=== PATIENT | male | born 1930 | race Caucasian/White ===

== ENCOUNTER 2016-08-21 03:50 | Emergency (ER) | payer MEDICARE, BC ==
[~2016-08-21] VITALS: Ht 172.7 cm; Wt 70.7 kg
[~2016-08-21 03:50] MED LIST: ASPI325T PO; CIPR500T4 PO; OMEP20CA5 PO; PLAV75TA PO; PROBCAP4 PO; TAMS0.4C67 PO
[2016-08-21 04:01] VITALS: BP 137/85; PULSE 72; RESP 16; TEMP 97.8; O2SAT 99
[2016-08-21 04:30] VITALS: O2SAT 99
[2016-08-21] MEDS ORDERED: SODIUM CHLORIDE 0.9% FLUSH 5 ML FLUSH IVF PRN (04:30)
--- NOTE | 2016-08-21 04:30 | PD ---
HPI Chief Complaint: elevated blood pressure Time Seen by Provider: 04:18 Travel History International Travel<30 days: No Contact w/Intl Traveler<30days: No Traveled to known affect area: No History of Present Illness HPI 86-year-old male presents to the emergency department for complaint of feeling stressed not able to sleep and elevated blood pressure. Patient states that he started a new medication dose for the first time tonight. Patient is on Exelon for memory disturbance and was taking a low-dose patch subsequently was increased to 2 low-dose patches and then was to start a new stronger strength of the patch tonight. Patient reports after placing the patch or transdermal absorption started noticing that he was agitated felt like he couldn't relax and felt like his head was under pressure. Patient checked his blood pressure and it was elevated. Patient continued to feel poorly and noted associated nausea so decided to come to the emergency room for evaluation. No sudden onset thunderclap or worst ever headache no visual disturbance no double vision no loss of vision no facial weakness no trouble with his speech no neck pain no chest pain no palpitations no shortness of breath nausea without vomiting no referred neck jaw back shoulder arm or abdominal pain no weakness on one side of the body or the other side of the body and no ataxia of gait. Due to persistent symptoms patient decided after 3 hours to come to the emergency room for evaluation. Patient now reports that he is started to fill somewhat more calm. Patient has extensive past medical history that includes CAD with previous angioplasty dyslipidemia CVA CAD Meyers's esophagitis GERD hypertension and BPH previous appendectomy cholecystectomy coronary stent and dementia. [facility] Past Medical History Narrative Medical CAD angioplasty dyslipidemia CVA DEMENTIA CAD Meyers's esophagitis GERD hypertension BPH appendectomy cholecystectomy coronary stent no tobacco use nursing notes. Hx Anticoagulant Therapy: Yes Arthritis: Yes Blood Disorders: No Depression: Yes Heart Rhythm Problems: Yes Cancer: Yes (SKIN) Cardiac Catheterization: Yes Cardiovascular Problems: Yes ( ) High Cholesterol: Yes Chemotherapy: No Chest Pain: Yes (angio plasty 05-19-07.) Congestive Heart Failure: No Cerebrovascular Accident: Yes (25 years ago) Coronary Artery Disease: Yes Diminished Hearing: Yes (bilat hearing aids, pt does not have them in) Endocrine: No Gastrointestinal Disorders: Yes (MEYERS'S EOSPHAGUS) GERD: Yes Genitourinary: Yes (URINARY INCONTINENCE) Headaches: No Hypertension: Yes Immune Disorder: No Musculoskeletal: No Neurologic: No Psychiatric: No Reproductive: Yes (ENLARGED PROSTATE) Respiratory: No Migraines: No Myocardial Infarction: No Seizures: No Past Surgical History Abdominal Surgery: Yes AICD: No Appendectomy: No Arteriovenous Shunt: No Cardiac Surgery: No Cholecystectomy: Yes (2004) Coronary Stent: Yes Ear Surgery: No Endocrine Surgery: No Eye Surgery: No Genitourinary Surgery: No Gynecologic Surgery: No Insulin Pump: No Joint Replacement: No Neurologic Surgery: No Oral Surgery: No Pacemaker: No Thoracic Surgery: No Social History Alcohol Use: No Tobacco Use: No Substance Use: No Allergies-Medications (Allergen,Severity, Reaction): Coded Allergies: Prednisone (Unverified Allergy, Severe, RASH/HIVES, 03/20/16) Reported Meds & Prescriptions Reported Meds & Active Scripts Active Reported Flomax (Tamsulosin HCl) 0.4 Mg Cap 0.4 Mg PO HS Probiotic (Lactobacillus Acidophilus) 1 Cap Cap 1 Cap PO DAILY Omeprazole 20 Mg Tab 20 Mg PO DAILY Plavix (Clopidogrel Bisulfate) 75 Mg Tab 75 Mg PO DAILY Narrative Medication exelon 9.5 Review of Systems Except as stated in HPI: all other systems reviewed are Neg General / Constitutional: No: Fever, Chills Eyes: No: Diploplia, Blurred Vision HENT: Positive: Headaches, No: Vertigo, Lightheadedness Cardiovascular: No: Chest Pain or Discomfort Respiratory: No: Cough, Shortness of Breath Gastrointestinal: Positive: Nausea, No: Vomiting, Diarrhea, Abdominal Pain Genitourinary: No: Decreased Urinary Output Musculoskeletal: No: Myalgias, Arthralgias Skin: No Rash Neurologic: No: Weakness, Dizziness, Syncope, Focal Abnormalities, Coordination Problem Psychiatric: Positive: Anxiety Endocrine: No: Heat Intolerance Hematologic/Lymphatic: No: Easy Bruising Physical Exam Narrative GENERAL: Well-developed well-nourished male in no acute distress no respiratory distress SKIN: Warm and dry. HEAD: Atraumatic. Normocephalic. EYES: Pupils equal and round. No scleral icterus. No injection or drainage. ENT: No nasal bleeding or discharge. Mucous membranes pink and moist. NECK: Trachea midline. No JVD. CARDIOVASCULAR: Regular rate and rhythm. RESPIRATORY: No accessory muscle use. Clear to auscultation. Breath sounds equal bilaterally. GASTROINTESTINAL: Abdomen soft, non-tender, nondistended. Hepatic and splenic margins not palpable. MUSCULOSKELETAL: Extremities without clubbing, cyanosis, or edema. No obvious deformities. NEUROLOGICAL: Awake and alert. No obvious cranial nerve deficits. Motor grossly within normal limits. Five out of 5 muscle strength in the arms and legs. Normal speech. PSYCHIATRIC: Appropriate mood and affect; insight and judgment normal. Data Data Last Documented VS Vital Signs Date Time Temp Pulse Resp B/P Pulse Ox O2 Delivery O2 Flow Rate FiO2 08/21/16 04:53 64 18 149/73 100 Room Air 08/21/16 04:01 97.8 Orders Electrocardiogram (08/21/16 04:18) Basic Metabolic Panel (Bmp) (08/21/16 04:18) Complete Blood Count With Diff (08/21/16 04:18) Magnesium (Mg) (08/21/16 04:18) Troponin I (08/21/16 04:18) Ecg Monitoring (08/21/16 04:18) Iv Access Insert/Monitor (08/21/16 04:18) Oximetry (08/21/16 04:18) Sodium Chloride 0.9% Flush (Ns Flush) (08/21/16 04:30) Labs Laboratory Tests Test 08/21/16 04:30 White Blood Count 6.3 TH/MM3 Red Blood Count 4.49 MIL/MM3 Hemoglobin 14.4 GM/DL Hematocrit 41.7 % Mean Corpuscular Volume 92.8 FL Mean Corpuscular Hemoglobin 31.9 PG Mean Corpuscular Hemoglobin 34.4 % Concent Red Cell Distribution Width 12.7 % Platelet Count 154 TH/MM3 Mean Platelet Volume 8.5 FL Neutrophils (%) (Auto) 76.4 % Lymphocytes (%) (Auto) 13.1 % Monocytes (%) (Auto) 7.9 % Eosinophils (%) (Auto) 2.0 % Basophils (%) (Auto) 0.6 % Neutrophils # (Auto) 4.9 TH/MM3 Lymphocytes # (Auto) 0.8 TH/MM3 Monocytes # (Auto) 0.5 TH/MM3 Eosinophils # (Auto) 0.1 TH/MM3 Basophils # (Auto) 0.0 TH/MM3 CBC Comment DIFF FINAL Differential Comment Sodium Level 137 MEQ/L Potassium Level 3.8 MEQ/L Chloride Level 103 MEQ/L Carbon Dioxide Level 24.9 MEQ/L Anion Gap 9 MEQ/L Blood Urea Nitrogen 19 MG/DL Creatinine 0.85 MG/DL Estimat Glomerular Filtration 86 ML/MIN Rate Random Glucose 96 MG/DL Calcium Level 8.6 MG/DL Magnesium Level 2.1 MG/DL Troponin I LESS THAN 0.02 NG/ML MDM Medical Decision Making Medical Screen Exam Complete: Yes Emergency Medical Condition: Yes Medical Record Reviewed: Yes Interpretation(s) EKG: Normal sinus rhythm rate [address] elevation or injury pattern change noted rare PVC CBC & BMP Diagram 08/21/16 04:30 Vital Signs Date Time Temp Pulse Resp B/P Pulse Ox O2 Delivery O2 Flow Rate FiO2 08/21/16 04:53 64 18 149/73 100 Room Air 08/21/16 04:30 99 Room Air 08/21/16 04:20 18 99 Room Air 08/21/16 04:01 97.8 72 16 137/85 99 Differential Diagnosis Hypertension, agitation, adverse medication reaction, atypical chest pain, ACS, CVA Narrative Course Patient with new strength of Exelon patch with onset of agitation and inability to sleep and hypertension shortly after administering the increased dose of medication. Symptoms suspicious for adverse medication reaction. Patient resting quietly and comfortably blood pressure improved waiting on lab results Patient informed EKG reveals no acute abnormality and lab values in normal range ; patient reports he feels much more relaxed and extensive discussion regarding possible sensitivity versus adverse reaction to new strength of medication of his Exelon patch patient will need to contact prescribing physician regarding the dosage eating of the medication and patient provided description of Exelon 4.6 mg/24 transdermal patch which she had been on as recently as Monday evening. Diagnosis Primary Impression: Adverse drug reaction Qualified Code: T88.7XXA - Adverse drug reaction, initial encounter Referrals: Primary Care Physician 1 day Patient Instructions: General Instructions Additional Instructions: Follow-up with prescribing physician office on Monday Return to the emergency department for any concerns or change in condition May return to previous dose of Exelon until opportunity to follow-up with managing physician by phone or office visit Increase fluid hydration Take acetaminophen/Tylenol as needed for fever 100.4F or greater or for minor discomfort Med/Other Pt SpecificInfo: Prescription(s) given Scripts Rivastigmine Patch (Exelon Patch)4.6 mg/24 hr Patch1 Patch T-DERMAL DAILY #2 PATCH Ref 0 Prov:Bernadine Osorio MD 08/21/16 Bernadine Osorio MD Aug 21, 2016 04:30
[2016-08-21 04:45] LABS: AUTOMATED NEUTROPHIL # 4.9 TH/MM3 (1.8-7.7); BASOPHIL % 0.6 % (0.0-2.0); EOSINOPHIL # 0.1 TH/MM3 (0-0.4); HEMATOCRIT 41.7 % (39.0-51.0); HEMO FLAGS DIFF FINAL; LYMPH % 13.1 % (9.0-44.0); LYMPHOCYTE # 0.8 TH/MM3 (1.0-4.8); MEAN CELL VOLUME 92.8 FL (80.0-100.0); MEAN CORPUSCULAR HEMOGLOBIN 31.9 PG (27.0-34.0); MEAN CORPUSCULAR HGB CONC 34.4 % (32.0-36.0); MONO % 7.9 % (0.0-8.0); NEUT % 76.4 % (16.0-70.0); PLATELET COUNT 154 TH/MM3 (150-450); RED BLOOD COUNT 4.49 MIL/MM3 (4.50-5.90); RED CELL DISTRIBUTION WIDTH 12.7 % (11.6-17.2); WHITE BLOOD COUNT 6.3 TH/MM3 (4.0-11.0)
[2016-08-21 04:50] LABS: CHLORIDE 103 MEQ/L (98-107); POTASSIUM 3.8 MEQ/L (3.5-5.1); SODIUM (NA) 137 MEQ/L (136-145)
[2016-08-21] MEDS ORDERED: PLAV75TA29 PO (04:52)
[2016-08-21] MEDS ORDERED: OMEP20TA PO (04:52)
[2016-08-21 04:53] VITALS: BP 149/73; PULSE 64; RESP 18; O2SAT 100
[2016-08-21 04:53] LABS: ANION GAP 9 MEQ/L (5-15); BICARBONATE 24.9 MEQ/L (21.0-32.0); BLOOD UREA NITROGEN 19 MG/DL (7-18); MAGNESIUM 2.1 MG/DL (1.5-2.5)
[2016-08-21] MEDS ORDERED: LACTCAP8 PO (04:53)
[2016-08-21] MEDS ORDERED: TAMS5CAP PO (04:53)
[2016-08-21 04:56] LABS: GLOMERULAR FILTRATION RATE 86 ML/MIN (>89)
[2016-08-21] MEDS ORDERED: RIVA4.6T T-DERMAL (05:25)
--- NOTE | 2016-08-21 13:27 | EKG ---
Date Performed: 08/21/2016 Time Performed: 04:29:50 PTAGE: 86 years EKG: Sinus arrhythmia with PVC(s) Borderline ECG PREVIOUS TRACING : 03/20/2016 20.45 No significant change from previous tracing noted. DOCTOR: Mark Barrientos Interpretating Date/Time 08/21/2016 13:26:14
== END 2016-08-21 05:50 | disposition home or self-care (01) ==
LOC: PHED 03:50
DX: I15.8 Other secondary hypertension (principal); I49.3 Ventricular premature depolarization; T44.1X5A Adverse effect of other parasympathomimetics [cholinergics], initial encounter
CPT/HCPCS: 80048; 83735; 84484; 85025; 93005

== ENCOUNTER 2016-09-11 16:01 | Emergency (ER) | payer MEDICARE, BC ==
[~2016-09-11] VITALS: Ht 172.7 cm; Wt 69.2 kg
[~2016-09-11 16:01] MED LIST changes: -ASPI325T PO; -CIPR500T4 PO; +LACTCAP8 PO; -OMEP20CA5 PO; +OMEP20TA PO; -PLAV75TA PO; +PLAV75TA29 PO; -PROBCAP4 PO; +RIVA4.6T T-DERMAL; -TAMS0.4C67 PO; +TAMS5CAP PO
[2016-09-11 16:27] VITALS: BP 139/80; PULSE 68; RESP 16; TEMP 98.4; O2SAT 100
--- NOTE | 2016-09-11 17:21 | PD ---
HPI Chief Complaint: Injury Time Seen by Provider: 17:18 Travel History International Travel<30 days: No Contact w/Intl Traveler<30days: No Traveled to known affect area: No History of Present Illness HPI 86-year-old male that presents to the ED for evaluation of fall. Per patient had trip and fall at the airport today while watching some parachuting. Per patient he tripped over the concrete and try to stop his fall with his right arm and he was successful as he did not hit his head or lose consciousness. Per patient he didn't think much of it but as the day has progressed she's been having some discomfort on the lateral aspect of the proximal palm as well as on the volar aspect of the wrist. Per patient he denies any injuries to this area. Per patient the pain is 7 out of 10. Gets worse with touch as well as with movement. Able to move all fingers. Denies any numbness, tilling, weakness. Does not take any blood thinners. Denies any other injury. Allergies to cortisone and prednisone. Pain does not radiate. Denies any shoulder or neck pain. No knee pain. PFSH Past Medical History Hx Anticoagulant Therapy: Yes (plavix) Arthritis: Yes Blood Disorders: No Depression: Yes Heart Rhythm Problems: Yes Cancer: Yes (SKIN) Cardiac Catheterization: Yes Cardiovascular Problems: Yes (stents x 2, ) High Cholesterol: Yes Chemotherapy: No Chest Pain: Yes (angio plasty 05-19-07.) Congestive Heart Failure: No Cerebrovascular Accident: Yes (tia's) Coronary Artery Disease: Yes Dementia: Yes Diminished Hearing: Yes (AGUA CALIENTE ) Endocrine: No Gastrointestinal Disorders: Yes (MEYERS'S EOSPHAGUS) GERD: Yes Genitourinary: Yes (URINARY INCONTINENCE) Headaches: No Hypertension: Yes Immune Disorder: No Musculoskeletal: No Neurologic: No Psychiatric: No Reproductive: Yes (ENLARGED PROSTATE) Respiratory: No Migraines: No Myocardial Infarction: No Seizures: No Past Surgical History Abdominal Surgery: Yes AICD: No Appendectomy: No Arteriovenous Shunt: No Cardiac Surgery: No Cholecystectomy: Yes (2004) Coronary Stent: Yes Ear Surgery: No Endocrine Surgery: No Eye Surgery: No Genitourinary Surgery: No Gynecologic Surgery: No Insulin Pump: No Joint Replacement: No Neurologic Surgery: No Oral Surgery: No Pacemaker: No Thoracic Surgery: No Social History Alcohol Use: Yes (Occasionally ) Tobacco Use: No Substance Use: No Allergies-Medications (Allergen,Severity, Reaction): Coded Allergies: Prednisone (Unverified Allergy, Severe, RASH/HIVES, 09/11/16) Cortisone (Verified Allergy, Intermediate, rash, 09/11/16) Reported Meds & Prescriptions Reported Meds & Active Scripts Active Exelon Patch (Rivastigmine) 4.6 mg/24 hr Patch 1 Patch T-DERMAL DAILY Reported Flomax (Tamsulosin HCl) 0.4 Mg Cap 0.4 Mg PO HS Probiotic (Lactobacillus Acidophilus) 1 Cap Cap 1 Cap PO DAILY Omeprazole 20 Mg Tab 20 Mg PO DAILY Plavix (Clopidogrel Bisulfate) 75 Mg Tab 75 Mg PO DAILY Review of Systems General / Constitutional: No: Fever, Chills, Weight Gain, Weight Loss, Other Eyes: No: Diploplia, Blurred Vision, Photophobia, Drainage, Redness, Foreign Body Sensation, Pain, Tearing, Blind Spots, Visual changes, Blindness, Other HENT: No: Headaches, Vertigo, Lightheadedness, Sore Throat, Rhinitis, Rhinorrhea, Congestion, Nosebleed, Neck Stiffness, Neck Pain, Masses, Gingival Bleeding, Dental Difficulties, Ear Discharge, Earache, Other Cardiovascular: No: Chest Pain or Discomfort, Palpitations, Irregular Rhythm, Tachycardia, Diaphoresis, Syncope, Dyspnea on exertion, Varicosities, Edema, Cyanosis, Varicosities, Phlebitis, Claudication, Other Respiratory: No: Cough, Shortness of Breath, Wheezing, Sneezing, Orthopnea, Hemoptysis, Stridor, Night Sweats, Pleuritic Pain, Other Gastrointestinal: No: Nausea, Vomiting, Diarrhea, Abdominal Pain, Hematemesis, Hematochezia, Constipation, Changes in Bowel Habits, Indigestion, Dysphagia, Loss of Appetite, Other Genitourinary: No: Urgency, Frequency, Dysuria, Nocturia, Hematuria, Decreased Urinary Output, Oliguria, Hesitancy, Dribbling, Incontinence, Pelvic Pain, Flank Pain, Dyspareunia, Discharge, Dysmenorrhea, Menorrhagia, Metorrhagia, Vaginal Bleeding, Other Musculoskeletal: Positive: Pain, No: Myalgias, Arthralgias, Limited ROM, Weakness, Cramping, Edema, Atrophy, Other Skin: No Rash, No Itching, No Dryness, No Lumps, No Hives, No Change in Pigmentation, No Change in nails, No Alopecia, No Lesions, No Breast Lumps, No Breast Tenderness, No Breast Swelling, No Other Neurologic: No: Weakness, Dizziness, Syncope, Focal Abnormalities, Coordination Problem, Tremor, Ataxia, Headache, Change in Mentation, Slurred Speech, Paresthesia, Incontinence, Seizures, Sensory Disturbance, Other Psychiatric: No: Anxiety, Depression, Suicidal Ideations, Disorder of Thought, Mood Disorder, Substance Abuse, Homicidal Ideation, Other Endocrine: No: Heat Intolerance, Cold Intolerance, Polyuria, Polydipsia, Other Hematologic/Lymphatic: No: Easy Bruising, Lymph Node Enlargement, Other Physical Exam Narrative GENERAL: SKIN: Warm and dry. HEAD: Atraumatic. Normocephalic. EYES: Pupils equal and round. No scleral icterus. No injection or drainage. ENT: No nasal bleeding or discharge. Mucous membranes pink and moist. Tongue is midline. No uvula deviation. NECK: Trachea midline. No JVD. CARDIOVASCULAR: Regular rate and rhythm. No murmurs, S3, S4. RESPIRATORY: No accessory muscle use. Clear to auscultation. Breath sounds equal bilaterally. GASTROINTESTINAL: Abdomen soft, non-tender, nondistended. Hepatic and splenic margins not palpable. MUSCULOSKELETAL: Extremities without clubbing, cyanosis, or edema. No obvious deformities. Full range of motion of the upper and lower extremities bilaterally. Patient does have reproducible pain on the ulnar palmar aspect of the right hand. Some bruising and swelling noted. No scapular tenderness to palpation. Able to move the fingers fully. Good capillary refill. 2+ pulses in the ulnar and radial arteries. NEUROLOGICAL: Awake and alert. No obvious cranial nerve deficits. Motor grossly within normal limits. Five out of 5 muscle strength in the arms and legs. Normal speech. PSYCHIATRIC: Appropriate mood and affect; insight and judgment normal. Data Data Last Documented VS Vital Signs Date Time Temp Pulse Resp B/P Pulse Ox O2 Delivery O2 Flow Rate FiO2 09/11/16 16:27 98.4 68 16 139/80 100 Orders Hand, Complete ([id number]) (09/11/16 ) Wrist, Complete ([id number]) (09/11/16 ) Splint Or Brace Apply/Monitor (09/11/16 19:12) MDM Medical Decision Making Medical Screen Exam Complete: Yes Emergency Medical Condition: Yes Medical Record Reviewed: Yes Interpretation(s) Last Impressions Wrist X-Ray 09/11/16 0000 Signed Impressions: Service Date/Time: Sunday, September 11, 2016 18:07 - CONCLUSION: 1. No acute fracture or malalignment. 2. Osteoarthritic changes. Ronnell Pelaez MD Hand X-Ray 09/11/16 0000 Signed Impressions: Service Date/Time: Sunday, September 11, 2016 18:02 - CONCLUSION: Negative trauma study with no acute fracture or malalignment. Ronnell Pelaez MD Differential Diagnosis Fracture versus sprain versus strain versus contusion Narrative Course 86-year-old male that presents to the ED for evaluation of right hand and wrist injury. Patient was properly examined and was found to have signs and symptoms concerning for bony injuries. X-rays were done. X-rays showed no sign of acute bony injury. Patient was reassured. Patient was given a brace. Prescription for the cough and exam to use for pain as needed. Follow with PCP. See ED if worsening symptoms. Diagnosis Primary Impression: Contusion of hand, right Patient Instructions: General Instructions Additional Instructions: Take medication as prescribed. Follow with PCP. See ED worsening symptoms. Ice or heat to the area as needed. Med/Other Pt SpecificInfo: Prescription(s) given Disposition: 01 DISCHARGE HOME Condition: Stable Alex Miller Sep 11, 2016 17:20
--- NOTE | 2016-09-11 18:41 | RADHPO ---
EXAM DATE/TIME: 09/11/2016 18:02 [facility] COMPARISON: No previous studies available for comparison. INDICATIONS : Right hand pain from fall MEDICAL HISTORY : None. SURGICAL HISTORY : None. ENCOUNTER: Initial ACUITY: 1 day PAIN SCORE: 5/10 LOCATION: Right hand FINDINGS: Three view examination of the right hand demonstrates no soft tissue swelling, dislocation, or fractu re. The carpal bones appear intact. Mild osteoarthritic changes are present sclerosis and mild join t space narrowing. The interphalangeal and metacarpophalangeal joints are intact. Bony mineralizatio n is normal. CONCLUSION: Negative trauma study with no acute fracture or malalignment. Ronnell Pelaez MD on September 11, 2016 at 18:37 Board Certified Radiologist. This report was verified electronically.
--- NOTE | 2016-09-11 18:44 | RADHPO ---
EXAM DATE/TIME: 09/11/2016 18:07 [facility] COMPARISON: No previous studies available for comparison. INDICATIONS : Right wrist pain from fall MEDICAL HISTORY : None. SURGICAL HISTORY : None. ENCOUNTER: Initial ACUITY: 1 day PAIN SCORE: 5/10 LOCATION: Right wrist FINDINGS: Three view examination of the right wrist demonstrates no soft tissue swelling, dislocation, or fract ure. The carpal bones are in normal alignment. Degenerative changes are noted in the carpus with sc lerosis and joint space narrowing. This is greatest in the trapezium scaphoid joint. The ulnar styloi d is intact. Bony mineralization is normal. CONCLUSION: 1. No acute fracture or malalignment. 2. Osteoarthritic changes. Ronnell Pelaez MD on September 11, 2016 at 18:42 Board Certified Radiologist. This report was verified electronically.
[2016-09-11] MEDS ORDERED: DICL75TA PO (19:17)
== END 2016-09-11 19:30 | disposition home or self-care (01) ==
LOC: PHED 16:01 → PHEFT 19:30
DX: S60.221A Contusion of right hand, initial encounter (principal); M25.531 Pain in right wrist; I10 Essential (primary) hypertension; F03.90 Unspecified dementia, unspecified severity, without behavioral disturbance, psychotic disturbance, mood disturbance, and anxiety; E78.00 Pure hypercholesterolemia, unspecified; H91.90 Unspecified hearing loss, unspecified ear; W01.0XXA Fall on same level from slipping, tripping and stumbling without subsequent striking against object, initial encounter; Y93.82 Activity, spectator at an event; Y92.520 Airport as the place of occurrence of the external cause; Z87.39 Personal history of other diseases of the musculoskeletal system and connective tissue; Z79.01 Long term (current) use of anticoagulants; Z86.79 Personal history of other diseases of the circulatory system; Z87.19 Personal history of other diseases of the digestive system; Z87.448 Personal history of other diseases of urinary system; Z87.438 Personal history of other diseases of male genital organs
CPT/HCPCS: 73110; 73130; 99284; L3908

== ENCOUNTER 2016-09-14 18:31 | Emergency (ER) | payer MEDICARE, BC ==
[2016-09-14] VITALS (8 sets, daily range): BP systolic 155–199; BP diastolic 83–103; PULSE 69–92; RESP 16–20; TEMP 98; O2SAT 96–99
[~2016-09-14] VITALS: Ht 172.7 cm; Wt 68.0 kg
[~2016-09-14 18:31] MED LIST changes: +DICL75TA PO
[2016-09-14] MEDS ORDERED: RIVA1.5C PO (18:48)
[2016-09-14] MEDS ORDERED: SODIUM CHLORIDE 0.9% FLUSH 10 ML FLUSH IVF PRN (19:45)
--- NOTE | 2016-09-14 20:17 | PD ---
HPI Chief Complaint: OD/ Ingestion Time Seen by Provider: 19:45 Travel History International Travel<30 days: No Contact w/Intl Traveler<30days: No Traveled to known affect area: No History of Present Illness HPI 86-year-old male presents to the emergency department by private transportation in the care of his daughter for accidental overdose of Exelon. Patient was recently changed from Exelon patches to Exelon tablets. Patient is prescribed Exelon 1.5 mg tablets to take twice daily. Patient has been on escalating scale of medications and was supposed to take Exelon 1.5 mg tablets two at one time this evening but instead took Exelon 4.5 mg tablets two at one time around 5:30 or 6 PM this evening. Patient states because he has had issues with previous Exelon transcutaneous patch overdose before became concerned and presents now for further evaluation. Patient states that he has the Exelon 4.5 mg tablets as anticipated dose that he is to increase to will be 6 mg twice daily. Patient denies headache, visual disturbance, nausea vomiting, diarrhea, muscle spasm, balance disturbance, near-syncope or syncope. Patient takes no other medications besides his Exelon. Patient states that previously with the external overdose he did have episode of hypertension and this evening became very concerned that as he had taken such an increased dose that his blood pressure may become dangerously elevated. Patient also denies any chest pain shortness of breath sweats referred neck jaw back shoulder arm pain. Patient presents with his family. PFSH Past Medical History Narrative Medical Patient is prescribed Plavix for TIAs, dementia, CAD with stent placement, dyslipidemia, hypertension, anxiety-depression, dementia, decreased hearing; cholecystectomy coronary stents; occasional alcohol use; nursing notes reviewed Hx Anticoagulant Therapy: Yes (plavix) Arthritis: Yes Blood Disorders: No Depression: Yes Heart Rhythm Problems: Yes Cancer: Yes (SKIN) Cardiac Catheterization: Yes Cardiovascular Problems: Yes (stents x 2, ) High Cholesterol: Yes Chemotherapy: No Chest Pain: Yes (angio plasty 05-19-07.) Congestive Heart Failure: No Cerebrovascular Accident: Yes (tia's) Coronary Artery Disease: Yes Dementia: Yes Diminished Hearing: Yes ([place] ) Endocrine: No Gastrointestinal Disorders: Yes (MEYERS'S EOSPHAGUS) GERD: Yes Genitourinary: Yes (URINARY INCONTINENCE) Headaches: No Hypertension: Yes Immune Disorder: No Musculoskeletal: No Neurologic: No Psychiatric: No Reproductive: Yes (ENLARGED PROSTATE) Respiratory: No Migraines: No Myocardial Infarction: No Seizures: No Past Surgical History Abdominal Surgery: Yes AICD: No Appendectomy: No Arteriovenous Shunt: No Cardiac Surgery: No Cholecystectomy: Yes (2004) Coronary Stent: Yes Ear Surgery: No Endocrine Surgery: No Eye Surgery: No Genitourinary Surgery: No Gynecologic Surgery: No Insulin Pump: No Joint Replacement: No Neurologic Surgery: No Oral Surgery: No Pacemaker: No Thoracic Surgery: No Social History Alcohol Use: Yes (Occasionally ) Tobacco Use: No Substance Use: No Allergies-Medications (Allergen,Severity, Reaction): Coded Allergies: Prednisone (Unverified Allergy, Severe, RASH/HIVES, 09/14/16) Cortisone (Verified Allergy, Intermediate, rash, 09/14/16) Reported Meds & Prescriptions Reported Meds & Active Scripts Active Reported Rivastigmine 1.5 Mg Cap 1.5 Mg PO BIDPC Flomax (Tamsulosin HCl) 0.4 Mg Cap 0.4 Mg PO HS Probiotic (Lactobacillus Acidophilus) 1 Cap Cap 1 Cap PO DAILY Omeprazole 20 Mg Tab 20 Mg PO DAILY Plavix (Clopidogrel Bisulfate) 75 Mg Tab 75 Mg PO DAILY Review of Systems Except as stated in HPI: all other systems reviewed are Neg General / Constitutional: No: Fever, Chills Eyes: No: Diploplia, Blurred Vision, Photophobia HENT: No: Headaches, Vertigo, Lightheadedness Cardiovascular: No: Chest Pain or Discomfort, Palpitations, Diaphoresis Respiratory: No: Shortness of Breath Gastrointestinal: No: Nausea, Vomiting, Diarrhea, Abdominal Pain Genitourinary: No: Decreased Urinary Output Musculoskeletal: No: Myalgias, Arthralgias, Cramping Skin: No Rash Neurologic: No: Weakness, Dizziness, Syncope, Focal Abnormalities, Coordination Problem, Ataxia, Headache, Change in Mentation, Slurred Speech, Paresthesia, Seizures Psychiatric: Positive: Anxiety Hematologic/Lymphatic: No: Lymph Node Enlargement Physical Exam Narrative GENERAL: Well-developed well-nourished male in no acute distress no respiratory distress SKIN: Warm and dry. HEAD: Atraumatic. Normocephalic. EYES: Pupils equal and round. No scleral icterus. No injection or drainage. ENT: No nasal bleeding or discharge. Mucous membranes pink and moist. NECK: Trachea midline. No JVD. CARDIOVASCULAR: Regular rate and rhythm. RESPIRATORY: No accessory muscle use. Clear to auscultation. Breath sounds equal bilaterally. GASTROINTESTINAL: Abdomen soft, non-tender, nondistended. Hepatic and splenic margins not palpable. MUSCULOSKELETAL: Extremities without clubbing, cyanosis, or edema. No obvious deformities. NEUROLOGICAL: Awake and alert. No obvious cranial nerve deficits. Motor grossly within normal limits. Five out of 5 muscle strength in the arms and legs. Normal speech. PSYCHIATRIC: Appropriate mood and affect; insight and judgment normal. Data Data Last Documented VS Vital Signs Date Time Temp Pulse Resp B/P Pulse Ox O2 Delivery O2 Flow Rate FiO2 09/14/16 21:52 74 20 158/98 96 09/14/16 18:34 98.0 Orders Complete Blood Count With Diff (09/14/16 19:45) Basic Metabolic Panel (Bmp) (09/14/16 19:45) Magnesium (Mg) (09/14/16 19:45) Electrocardiogram (09/14/16 ) Iv Access Insert/Monitor (09/14/16 19:45) Ecg Monitoring (09/14/16 19:45) Oximetry (09/14/16 19:45) Sodium Chloride 0.9% Flush (Ns Flush) (09/14/16 19:45) Call Poison Control (09/14/16 19:45) Labs Laboratory Tests Test 09/14/16 20:10 White Blood Count 6.6 TH/MM3 Red Blood Count 4.15 MIL/MM3 Hemoglobin 13.6 GM/DL Hematocrit 40.0 % Mean Corpuscular Volume 96.3 FL Mean Corpuscular Hemoglobin 32.8 PG Mean Corpuscular Hemoglobin 34.0 % Concent Red Cell Distribution Width 13.3 % Platelet Count 121 TH/MM3 Mean Platelet Volume 8.5 FL Neutrophils (%) (Auto) 81.5 % Lymphocytes (%) (Auto) 10.0 % Monocytes (%) (Auto) 7.1 % Eosinophils (%) (Auto) 1.2 % Basophils (%) (Auto) 0.2 % Neutrophils # (Auto) 5.2 TH/MM3 Lymphocytes # (Auto) 0.7 TH/MM3 Monocytes # (Auto) 0.5 TH/MM3 Eosinophils # (Auto) 0.1 TH/MM3 Basophils # (Auto) 0.0 TH/MM3 CBC Comment AUTO DIFF Differential Comment AUTO DIFF CONFIRMED Sodium Level 136 MEQ/L Potassium Level 3.8 MEQ/L Chloride Level 102 MEQ/L Carbon Dioxide Level 24.3 MEQ/L Anion Gap 10 MEQ/L Blood Urea Nitrogen 22 MG/DL Creatinine 0.69 MG/DL Estimat Glomerular Filtration 109 ML/MIN Rate Random Glucose 103 MG/DL Calcium Level 8.1 MG/DL Magnesium Level 2.1 MG/DL MDM Medical Decision Making Medical Screen Exam Complete: Yes Emergency Medical Condition: Yes Medical Record Reviewed: Yes Interpretation(s) EKG: Normal sinus rhythm rate [address] elevation or injury pattern change or ectopy noted Differential Diagnosis Accidental overdose-Exelon, adverse medication reaction, hypertension uncontrolled Narrative Course Call placed to poison control patient placed on radiation monitor IV access obtained EKG performed reveals no acute injury pattern change or ST elevation or ectopy CBC is automated differential 81% neutrophils and mild thrombocytopenia 121,000 platelets otherwise values grossly normal range; metabolic panel values in normal range except for mild hypocalcemia of 8.1; EKG is sinus rhythm without ectopy or acute injury pattern change Patient continues to be observed in the emergency department as recommended by poison control; doing well voicing no concerns or complaints Patient ambulatory several times to the bathroom without assistance and remaining asymptomatic @2200 p.m. poison control recontacted regarding patient's observation (4 hours in the ED without symptoms) discussed case with poison space control agent Popeye who also viewed case with initial poison space control agent Vicenta--patient is observation. Has been sufficient to patient being released home safely maximum 24-hour dose is recommended as 12 mg patient is under this dose and not considered to have received/ingested a toxic dose of Exelon. Patient's repeat blood pressure via manual BP 158/98. Patient doesn't recall the name of his as needed BP med he's had in the past. Critical Care Narrative Aggregate critical care time was 35 minutes. Time to perform other separately billable procedures was not included in the critical care time. My time did not include minutes spent treating any other patients simultaneously or on activities that did not directly contribute to the patient's treatment. The services I provided to this patient were to treat and/or prevent clinically significant deterioration that could result in: Seizure, hypertensive crisis, ICH, I provided critical care services requiring my management, as noted below: Chart data review, documentation time, medication orders and management, vital sign assessments/reviewing monitor data, ordering and reviewing lab tests, ordering and interpreting/reviewing x-rays and diagnostic studies, care of the patient and discussion of the patient with the admitting physicians. Diagnosis Primary Impression: Accidental medication overdose Qualified Code: T50.901A - Accidental medication overdose, initial encounter Additional Impression: History of hypertension Referrals: Primary Care Physician 1 day Patient Instructions: General Instructions Additional Instructions: Follow-up with primary care provider call office in a.m. to schedule follow-up appointment Avoid exposure to Exelon 4.5 mg tablets by placing them and a secure place away from daily medication use area until time to begin using this dosage of medication as prescribed by your providing physician Return to the emergency department for any concerns or change in condition Increase fluid hydration Med/Other Pt SpecificInfo: Prescription(s) given Scripts Clonidine 0.1 Mg Tab0.1 Mg PO Q12HR PRN (SBP>180, DBP>95) #3 TAB Ref 0 Prov:Bernadine Osorio MD 09/14/16 Disposition: 01 DISCHARGE HOME Condition: Stable Bernadine Osorio MD Sep 14, 2016 20:17
[2016-09-14 20:18] LABS: AUTOMATED NEUTROPHIL # 5.2 TH/MM3 (1.8-7.7); BASOPHIL % 0.2 % (0.0-2.0); EOSINOPHIL # 0.1 TH/MM3 (0-0.4); EOSINOPHIL % 1.2 % (0.0-4.0); LYMPHOCYTE # 0.7 TH/MM3 (1.0-4.8); MEAN CELL VOLUME 96.3 FL (80.0-100.0); MEAN CORPUSCULAR HEMOGLOBIN 32.8 PG (27.0-34.0); MONO % 7.1 % (0.0-8.0); NEUT % 81.5 % (16.0-70.0); PLATELET COUNT 121 TH/MM3 (150-450); RED BLOOD COUNT 4.15 MIL/MM3 (4.50-5.90); RED CELL DISTRIBUTION WIDTH 13.3 % (11.6-17.2); WHITE BLOOD COUNT 6.6 TH/MM3 (4.0-11.0)
[2016-09-14 20:23] LABS: POTASSIUM 3.8 MEQ/L (3.5-5.1)
[2016-09-14 20:26] LABS: BICARBONATE 24.3 MEQ/L (21.0-32.0); MAGNESIUM 2.1 MG/DL (1.5-2.5)
[2016-09-14 20:28] LABS: HEMO FLAGS AUTO DIFF
[2016-09-14 21:10] LABS: SCAN/DIFF AUTO DIFF CONFIRMED
[2016-09-14] MEDS ORDERED: CLON0.1T PO (22:39)
[2016-09-15] VITALS: BP 179/89; PULSE 82; RESP 20; O2SAT 97
[2016-09-15 00:50] VITALS: BP 170/70
--- NOTE | 2016-09-15 14:40 | EKG ---
Date Performed: 09/14/2016 Time Performed: 20:30:42 PTAGE: 86 years EKG: Sinus rhythm . Poor R wave progression - probable normal variant Borderline ECG Compared to prior tracing no signi ficant change PREVIOUS TRACING : 08/21/2016 04.29 DOCTOR: Mekhi Wagner Interpretating Date/Time 09/15/2016 14:38:08
== END 2016-09-14 23:08 | disposition home or self-care (01) ==
LOC: PHED 18:31
DX: T44.1X1A Poisoning by other parasympathomimetics [cholinergics], accidental (unintentional), initial encounter (principal); R94.31 Abnormal electrocardiogram [ECG] [EKG]; E78.00 Pure hypercholesterolemia, unspecified; I25.10 Atherosclerotic heart disease of native coronary artery without angina pectoris; F03.90 Unspecified dementia, unspecified severity, without behavioral disturbance, psychotic disturbance, mood disturbance, and anxiety; I10 Essential (primary) hypertension; K21.9 Gastro-esophageal reflux disease without esophagitis; Z86.73 Personal history of transient ischemic attack (TIA), and cerebral infarction without residual deficits; Z79.01 Long term (current) use of anticoagulants; Y92.009 Unspecified place in unspecified non-institutional (private) residence as the place of occurrence of the external cause; Y99.8 Other external cause status
CPT/HCPCS: 80048; 83735; 85025; 93005

== ENCOUNTER 2017-05-05 11:44 | Emergency (ER) | payer MEDICARE, BC ==
[~2017-05-05] VITALS: Ht 172.7 cm; Wt 67.0 kg
[~2017-05-05 11:44] MED LIST changes: +CLON0.1T PO; -DICL75TA PO; -OMEP20TA PO; +OMEP20TA93 PO; +RIVA1.5C PO; -RIVA4.6T T-DERMAL
[2017-05-05 11:50] VITALS: BP 137/67; PULSE 65; RESP 18; TEMP 97.2; O2SAT 97
--- NOTE | 2017-05-05 12:04 | PD ---
HPI Chief Complaint: GI Complaint Time Seen by Provider: 12:02 Travel History International Travel<30 days: No Contact w/Intl Traveler<30days: No Traveled to known affect area: No History of Present Illness HPI This patient complains of generalized weakness and diarrhea. Duration 3 days. Severity is moderate. He has minor nausea without vomiting or fever or abdominal pain. He's had one episode of diarrhea in each of the last 3 days. No bleeding. Symptoms have no alleviating factors. No exacerbating factors. No recent travel PFSH Past Medical History Hx Anticoagulant Therapy: Yes (plavix) Arthritis: Yes Blood Disorders: No Depression: Yes Heart Rhythm Problems: Yes Cancer: Yes (SKIN) Cardiac Catheterization: Yes Cardiovascular Problems: Yes (stents x 2, ) High Cholesterol: Yes Chemotherapy: No Chest Pain: Yes (angio plasty 05-19-07.) Congestive Heart Failure: No Cerebrovascular Accident: Yes (tia's) Coronary Artery Disease: Yes Dementia: Yes Diminished Hearing: Yes ([place] ) Endocrine: No Gastrointestinal Disorders: Yes (MEYERS'S EOSPHAGUS) GERD: Yes Genitourinary: Yes (URINARY INCONTINENCE) Headaches: No Hypertension: Yes Immune Disorder: No Musculoskeletal: No Neurologic: No Psychiatric: No Reproductive: Yes (ENLARGED PROSTATE) Respiratory: No Migraines: No Myocardial Infarction: No Seizures: No Past Surgical History Abdominal Surgery: Yes AICD: No Appendectomy: No Arteriovenous Shunt: No Cardiac Surgery: No Cholecystectomy: Yes (2004) Coronary Stent: Yes Ear Surgery: No Endocrine Surgery: No Eye Surgery: No Genitourinary Surgery: No Gynecologic Surgery: No Insulin Pump: No Joint Replacement: No Neurologic Surgery: No Oral Surgery: No Pacemaker: No Thoracic Surgery: No Social History Alcohol Use: Yes (Occasionally ) Tobacco Use: No Substance Use: No Allergies-Medications (Allergen,Severity, Reaction): Coded Allergies: prednisone (Unverified Allergy, Severe, RASH/HIVES, 05/05/17) cortisone (Unverified Allergy, Intermediate, rash, 05/05/17) Reported Meds & Prescriptions Reported Meds & Active Scripts Active Reported Tylenol (Acetaminophen) 325 Mg Tab 650 Mg PO BID Caffeine 200 Mg Tab 100 Mg PO Q4HR PRN Celebrex (Celecoxib) 50 Mg Cap 50 Mg PO BID Cymbalta DR (Duloxetine HCl) 20 Mg Capdr 20 Mg PO DAILY Metamucil Original Texture (Psyllium Hydrophilic Mucilloid) 3.4 Gram/7 Gram Pow 1 Scoop PO TID PRN 1 rounded [place] in 8 oz of liquid at the first sign of irregularity. Miralax Powder (Polyethylene Glycol 3350 Powder) 17 Gm Powd 17 Gm PO DAILY Mix and dissolve one measuring cap-ful (17 grams) in water or juice. Flomax (Tamsulosin HCl) 0.4 Mg Cap 0.4 Mg PO HS Probiotic (Lactobacillus Acidophilus) 1 Cap Cap 1 Cap PO DAILY Omeprazole 20 Mg Tab 20 Mg PO DAILY Review of Systems General / Constitutional: No: Fever Eyes: No: Visual changes HENT: No: Headaches Cardiovascular: No: Chest Pain or Discomfort Respiratory: No: Shortness of Breath Gastrointestinal: Positive: Diarrhea, No: Abdominal Pain Genitourinary: No: Dysuria Musculoskeletal: Positive: Weakness, No: Pain Skin: No Rash Neurologic: No: Weakness Psychiatric: No: Depression Endocrine: No: Polydipsia Hematologic/Lymphatic: No: Easy Bruising Physical Exam Narrative GENERAL: Well-nourished, well-developed patient in no apparent distress. SKIN: Focused skin assessment reveals no rash and nodules. Skin is Warm and dry. HEAD: Atraumatic. Normocephalic. EYES: Pupils equal and round. No scleral icterus. No injection or drainage. ENT: No nasal bleeding or discharge. Mucous membranes pink and moist. NECK: Trachea midline. No JVD. CARDIOVASCULAR: Regular rate and rhythm. No murmur appreciated. RESPIRATORY: No accessory muscle use. Clear to auscultation. Breath sounds equal bilaterally. GASTROINTESTINAL: Abdomen soft, non-tender, nondistended. Hepatic and splenic margins not palpable. MUSCULOSKELETAL: No obvious deformities. No clubbing. No cyanosis. No edema. NEUROLOGICAL: Awake and alert. No obvious cranial nerve deficits. Motor grossly within normal limits. Normal speech. PSYCHIATRIC: Appropriate mood and affect; insight and judgment normal. Data Data Last Documented VS Vital Signs Date Time Temp Pulse Resp B/P (MAP) Pulse Ox O2 Delivery O2 Flow Rate FiO2 05/05/17 11:50 97.2 65 18 137/67 (90) 97 Orders Orders Iv Access Insert/Monitor (05/05/17 12:02) Complete Blood Count With Diff (05/05/17 12:02) Basic Metabolic Panel (Bmp) (05/05/17 12:02) Ondansetron Inj (Zofran Inj) (05/05/17 12:15) Sodium Chlor 0.9% 1000 Ml Inj (Ns 1000 M (05/05/17 12:15) Labs Laboratory Tests Test 05/05/17 12:20 White Blood Count 5.9 TH/MM3 Red Blood Count 4.47 MIL/MM3 Hemoglobin 14.3 GM/DL Hematocrit 42.3 % Mean Corpuscular Volume 94.6 FL Mean Corpuscular Hemoglobin 31.9 PG Mean Corpuscular Hemoglobin Concent 33.8 % Red Cell Distribution Width 12.6 % Platelet Count 118 TH/MM3 Mean Platelet Volume 9.2 FL Neutrophils (%) (Auto) 76.3 % Lymphocytes (%) (Auto) 12.3 % Monocytes (%) (Auto) 9.3 % Eosinophils (%) (Auto) 1.2 % Basophils (%) (Auto) 0.9 % Neutrophils # (Auto) 4.5 TH/MM3 Lymphocytes # (Auto) 0.7 TH/MM3 Monocytes # (Auto) 0.5 TH/MM3 Eosinophils # (Auto) 0.1 TH/MM3 Basophils # (Auto) 0.1 TH/MM3 CBC Comment AUTO DIFF Differential Comment AUTO DIFF CONFIRMED Platelet Estimate LOW Platelet Morphology Comment NORMAL Blood Urea Nitrogen 13 MG/DL Creatinine 0.87 MG/DL Random Glucose 94 MG/DL Calcium Level 8.5 MG/DL Sodium Level 134 MEQ/L Potassium Level 3.7 MEQ/L Chloride Level 102 MEQ/L Carbon Dioxide Level 26.4 MEQ/L Anion Gap 6 MEQ/L Estimat Glomerular Filtration Rate 83 ML/MIN [facility] Medical Decision Making Medical Screen Exam Complete: Yes Emergency Medical Condition: Yes Medical Record Reviewed: Yes Differential Diagnosis Colitis, gastroenteritis, food poisoning, electrolyte abnormality Narrative Course I have reviewed the patient's electronic medical record. IV placed CBC is normal Metabolic profile is normal I gave him 1 L normal saline IV and IV Zofran On recheck he is clinically well. He's had no diarrhea while he's been here He is well-hydrated The patient was advised to follow up with their physician and return if they worsen. Diagnosis Primary Impression: Diarrhea Qualified Codes: R19.7 - Diarrhea, unspecified Additional Impression: Generalized weakness Additional Instructions: The patient was advised to follow up with their physician and return if they worsen. Med/Other Pt SpecificInfo: Other Disposition: DISCHARGE HOME Condition: Stable Marin Granados MD May 05, 2017 12:04
[2017-05-05] MEDS ORDERED: META48.53 PO (12:05)
[2017-05-05] MEDS ORDERED: CELE50CA PO (12:05)
[2017-05-05] MEDS ORDERED: DULO20 PO (12:05)
[2017-05-05] MEDS ORDERED: CAFF200T PO (12:05)
[2017-05-05] MEDS ORDERED: MIRA3350 PO (12:05)
[2017-05-05] MEDS ORDERED: TYLE325T PO (12:05)
[2017-05-05] MEDS ORDERED: ONDANSETRON HCL 4 MG/2 ML VIAL IVP ONE (12:15)
[2017-05-05] MEDS ORDERED: SODIUM CHLOR 0.9% 1000 ML INJ 1,000 ML IV ONE (12:15)
[2017-05-05 12:25] LABS: AUTOMATED NEUTROPHIL # 4.5 TH/MM3 (1.8-7.7); BASOPHIL # 0.1 TH/MM3 (0-0.2); BASOPHIL % 0.9 % (0.0-2.0); EOSINOPHIL # 0.1 TH/MM3 (0-0.4); EOSINOPHIL % 1.2 % (0.0-4.0); HEMATOCRIT 42.3 % (39.0-51.0); LYMPH % 12.3 % (9.0-44.0); LYMPHOCYTE # 0.7 TH/MM3 (1.0-4.8); MEAN CELL VOLUME 94.6 FL (80.0-100.0); MEAN CORPUSCULAR HEMOGLOBIN 31.9 PG (27.0-34.0); MEAN CORPUSCULAR HGB CONC 33.8 % (32.0-36.0); MONO % 9.3 % (0.0-8.0); NEUT % 76.3 % (16.0-70.0); PLATELET COUNT 118 TH/MM3 (150-450); RED BLOOD COUNT 4.47 MIL/MM3 (4.50-5.90); RED CELL DISTRIBUTION WIDTH 12.6 % (11.6-17.2); WHITE BLOOD COUNT 5.9 TH/MM3 (4.0-11.0)
[2017-05-05 12:33] LABS: POTASSIUM 3.7 MEQ/L (3.5-5.1)
[2017-05-05 12:35] LABS: HEMO FLAGS AUTO DIFF
[2017-05-05 12:36] LABS: BICARBONATE 26.4 MEQ/L (21.0-32.0)
[2017-05-05 13:10] LABS: PLATELET ESTIMATE SMEAR LOW (NORMAL); PLATELET MORPHOLOGY NORMAL (NORMAL); SCAN/DIFF AUTO DIFF CONFIRMED
[2017-05-05 13:20] VITALS: BP 169/83; PULSE 63; RESP 18; O2SAT 97
[2017-05-05 13:42] VITALS: BP 156/81
== END 2017-05-05 13:47 | disposition home or self-care (01) ==
LOC: PHED 11:44
DX: R19.7 Diarrhea, unspecified (principal); R53.1 Weakness; R11.0 Nausea; I10 Essential (primary) hypertension; F03.90 Unspecified dementia, unspecified severity, without behavioral disturbance, psychotic disturbance, mood disturbance, and anxiety; E78.00 Pure hypercholesterolemia, unspecified; H91.90 Unspecified hearing loss, unspecified ear; Z79.01 Long term (current) use of anticoagulants; Z87.39 Personal history of other diseases of the musculoskeletal system and connective tissue; Z86.59 Personal history of other mental and behavioral disorders; Z86.79 Personal history of other diseases of the circulatory system; Z87.19 Personal history of other diseases of the digestive system; Z87.448 Personal history of other diseases of urinary system; Z87.438 Personal history of other diseases of male genital organs
CPT/HCPCS: 80048; 85025; 96361; 96374; 99284; J2405; J7030

== ENCOUNTER 2017-08-21 07:57 | Inpatient (IN) | payer MEDICARE, BC ==
[~2017-08-21] VITALS: Ht 172.7 cm; Wt 63.4 kg
[2017-08-21] VITALS (14 sets, daily range): BP systolic 139–192; BP diastolic 68–107; PULSE 64–84; RESP 15–33; TEMP 97.7–98.1; O2SAT 90–100
[~2017-08-21 07:57] MED LIST changes: +CAFF200T PO; +CELE50CA PO; -CLON0.1T PO; +DULO20 PO; +META48.53 PO; +MIRA3350 PO; -PLAV75TA29 PO; -RIVA1.5C PO; +TYLE325T PO
--- NOTE | 2017-08-21 08:18 | PD ---
HPI Chief Complaint: Fall Time Seen by Provider: 08:14 Travel History International Travel<30 days: No Contact w/Intl Traveler<30days: No Traveled to known affect area: No History of Present Illness HPI Patient comes in without apparent complaint however was brought in by family who stated that he fell 2 or 3 days ago and now he seems to be complaining of johnson (minimal 3/10) nausea and vomiting. Apparently per patient he heard the phone ring turned to go answer and he turned too quickly got dizzy and stumbled down there was no loss of consciousness. Patient denies any alleviating or aggravating factors. Patient denies any associated factors such as fever, rash , neck pain, back pain, chest pain, abdominal pain. Allergies on record are cortisone and prednisone unknown what reaction since patient has history of dementia Past medical history and surgical history significant for TIAs, dementia, Alzheimer's disease, stents 2, hypercholesterolemia, on Plavix, hypertension, previous cholecystectomy PFSH Past Medical History Hx Anticoagulant Therapy: Yes (plavix) Alzheimer's Disease: Yes Arthritis: Yes Blood Disorders: No Depression: Yes Heart Rhythm Problems: Yes Cancer: Yes (SKIN) Cardiac Catheterization: Yes Cardiovascular Problems: Yes (stents x 2, ) High Cholesterol: Yes Chemotherapy: No Chest Pain: Yes (angio plasty 05-19-07.) Congestive Heart Failure: No Cerebrovascular Accident: Yes (tia's) Coronary Artery Disease: Yes Dementia: Yes Diminished Hearing: Yes (COUNCIL ) Endocrine: No Gastrointestinal Disorders: Yes (MEYERS'S EOSPHAGUS) GERD: Yes Genitourinary: Yes (URINARY INCONTINENCE) Headaches: No Hypertension: Yes Immune Disorder: No Musculoskeletal: No Neurologic: No Psychiatric: No Reproductive: Yes (ENLARGED PROSTATE) Respiratory: No Immunizations Current: Yes (FLU SHOT 2006; PNEUMOMNIA < 5 yrs.) Migraines: No Myocardial Infarction: No Seizures: No Past Surgical History Abdominal Surgery: Yes AICD: No Appendectomy: No Arteriovenous Shunt: No Cardiac Surgery: No Cholecystectomy: Yes (2004) Coronary Stent: Yes Ear Surgery: No Endocrine Surgery: No Eye Surgery: No Genitourinary Surgery: No Gynecologic Surgery: No Insulin Pump: No Joint Replacement: No Neurologic Surgery: No Oral Surgery: No Pacemaker: No Thoracic Surgery: No Social History Alcohol Use: Yes (Occasionally ) Tobacco Use: No Substance Use: No Allergies-Medications (Allergen,Severity, Reaction): Coded Allergies: prednisone (Unverified Allergy, Severe, RASH/HIVES, 08/21/17) cortisone (Unverified Allergy, Intermediate, rash, 08/21/17) Reported Meds & Prescriptions Reported Meds & Active Scripts Active Reported Caffeine 200 Mg Tab 100 Mg PO Q4HR PRN Cymbalta DR (Duloxetine HCl) 20 Mg Capdr 20 Mg PO DAILY Flomax (Tamsulosin HCl) 0.4 Mg Cap 0.4 Mg PO HS Review of Systems General / Constitutional: No: Fever Eyes: No: Visual changes HENT: Positive: Lightheadedness Cardiovascular: No: Chest Pain or Discomfort Respiratory: No: Shortness of Breath Gastrointestinal: Positive: Nausea Genitourinary: No: Dysuria Musculoskeletal: No: Pain Skin: No Rash Neurologic: No: Weakness Psychiatric: No: Depression Endocrine: No: Polydipsia Hematologic/Lymphatic: No: Easy Bruising Physical Exam Narrative GENERAL: SKIN: Warm and dry. HEAD: Atraumatic. Normocephalic. EYES: Pupils equal and round. No scleral icterus. No injection or drainage. ENT: No nasal bleeding or discharge. Mucous membranes pink and moist. NECK: Trachea midline. No JVD. CARDIOVASCULAR: Regular rate and rhythm. RESPIRATORY: No accessory muscle use. Clear to auscultation. Breath sounds equal bilaterally. GASTROINTESTINAL: Abdomen soft, non-tender, nondistended. MUSCULOSKELETAL: Extremities without clubbing, cyanosis, or edema. No obvious deformities. NEUROLOGICAL: Awake and alert. No obvious cranial nerve deficits. Motor grossly within normal limits. Five out of 5 muscle strength in the arms and legs. Normal speech. PSYCHIATRIC: Appropriate mood and affect; insight and judgment normal. Data Data Last Documented VS Vital Signs Date Time Temp Pulse Resp B/P (MAP) Pulse Ox O2 Delivery O2 Flow Rate FiO2 08/21/17 09:05 83 18 192/107 (135) 92 Room Air Orders Orders Complete Blood Count With Diff (08/21/17 08:18) Comprehensive Metabolic Panel (08/21/17 08:18) Troponin I (08/21/17 08:18) B-Type Natriuretic Peptide (08/21/17 08:18) Prothrombin Time / Inr (Pt) (08/21/17 08:18) Act Partial Throm Time (Ptt) (08/21/17 08:18) Lipase (08/21/17 08:18) Urinalysis - C+S If Indicated (08/21/17 08:18) Thyroid Stimulating Hormone (08/21/17 08:18) Influenzae A/B Antigen (08/21/17 08:18) Chest, Single Ap (08/21/17 08:18) Ct Brain W/O Iv Contrast(Rout) (08/21/17 08:18) Iv Access Insert/Monitor (08/21/17 08:18) Ecg Monitoring (08/21/17 08:18) Oximetry (08/21/17 08:18) Fosphenytoin Inj (Cerebyx Inj) (08/21/17 09:30) Nimodipine (Nimotop) (08/21/17 09:15) Ondansetron Inj (Zofran Inj) (08/21/17 09:15) Labetalol Inj (Trandate Inj) (08/21/17 10:15) Admit Order (Ed Use Only) (08/21/17 10:10) Labs Laboratory Tests Test 08/21/17 09:02 08/21/17 09:17 White Blood Count 9.3 TH/MM3 Red Blood Count 4.76 MIL/MM3 Hemoglobin 15.5 GM/DL Hematocrit 45.3 % Mean Corpuscular Volume 95.3 FL Mean Corpuscular Hemoglobin 32.7 PG Mean Corpuscular Hemoglobin Concent 34.3 % Red Cell Distribution Width 12.9 % Platelet Count 132 TH/MM3 Mean Platelet Volume 9.6 FL Neutrophils (%) (Auto) 85.5 % Lymphocytes (%) (Auto) 6.8 % Monocytes (%) (Auto) 6.4 % Eosinophils (%) (Auto) 0.3 % Basophils (%) (Auto) 1.0 % Neutrophils # (Auto) 8.0 TH/MM3 Lymphocytes # (Auto) 0.6 TH/MM3 Monocytes # (Auto) 0.6 TH/MM3 Eosinophils # (Auto) 0.0 TH/MM3 Basophils # (Auto) 0.1 TH/MM3 CBC Comment DIFF FINAL Differential Comment Prothrombin Time 10.4 SEC Prothromb Time International Ratio 1.0 RATIO Activated Partial Thromboplast Time 22.2 SEC Blood Urea Nitrogen 15 MG/DL Creatinine 0.79 MG/DL Random Glucose 120 MG/DL Total Protein 7.7 GM/DL Albumin 4.1 GM/DL Calcium Level 9.0 MG/DL Alkaline Phosphatase 60 U/L Aspartate Amino Transf (AST/SGOT) 15 U/L Alanine Aminotransferase (ALT/SGPT) 21 U/L Total Bilirubin 0.7 MG/DL Sodium Level 135 MEQ/L Potassium Level 3.4 MEQ/L Chloride Level 98 MEQ/L Carbon Dioxide Level 27.6 MEQ/L Anion Gap 9 MEQ/L Estimat Glomerular Filtration Rate 93 ML/MIN Troponin I LESS THAN 0.02 NG/ML B-Type Natriuretic Peptide 44 PG/ML Lipase 73 U/L Thyroid Stimulating Hormone 3rd Gen 1.040 uIU/ML Urine Color STRAW Urine Turbidity CLEAR Urine pH 6.5 Urine Specific [place] 1.016 Urine Protein NEG mg/dL Urine Glucose (UA) NEG mg/dL Urine Ketones TRACE mg/dL Urine Occult Blood TRACE Urine Nitrite NEG Urine Bilirubin NEG Urine Leukocyte Esterase NEG Urine WBC 0-2 /hpf Microscopic Urinalysis Comment CULT NOT INDICATED MDM Medical Decision Making Medical Screen Exam Complete: Yes Emergency Medical Condition: Yes Medical Record Reviewed: Yes Differential Diagnosis Near syncope versus syncope versus mechanical fall versus intracranial hemorrhage Narrative Course CT scan reported a small 6 mm right occipital subdural subacute by density, there is no significant mass-effect. No skull fracture ventricle size are appropriate and orbits and nasal sinuses unremarkable. Immediately after seeing the report, patient was initiated with a single dose of fosphenytoin, single dose of Zofran had already been given for nausea, and call to neurosurgeon Dr. Gill has already been made CBC does not show any leukocytosis, no anemia, and platelet count of 132,000 which is slightly lower. Patient does have a mild left shift of neutrophilia of 85% Coagulation profile is within normal limits UA is within normal limits and does not show any evidence of a UTI Flu test negative Chest x-ray shows per radiologist read no acute cardiopulmonary abnormality. Critical Care Narrative CRITICAL CARE NOTE: With evaluation of the patient, labs, EKG, receipt of radiologic studies, administration of medications, reevaluation the patient and discussion of the patient with the admitting physicians, the total critical care time was [60] minutes. Time to perform other separately billable procedures was not included in the critical care time. Physician Communication Physician Communication Discussed fully with neurosurgeon Dr. Gill who recommends transfer to [facility], and admission by supervisor [employer]. Agrees with my current management Accepted by Dr. Cheatham supervisor [employer] for [facility]. Diagnosis Primary Impression: right subacute subdural hematoma Disposition: 70 TRANSFER TO OTHER FACILITY ([facility] ISC ADMISSION D/W DR CHEATHAM AND JATIN) Condition: Stable Juan David Hernández MD Aug 21, 2017 08:18
--- NOTE | 2017-08-21 09:00 | RADRPT ---
EXAM DATE/TIME: 08/21/2017 08:41 [facility] COMPARISON: CT BRAIN W/O CONTRAST, March 20, 2016, 21:46. INDICATIONS : Fell and hit head three dyas ago. Vomiting since last night. RADIATION DOSE: 60.68 CTDIvol (mGy) MEDICAL HISTORY : Cerebrovascular disease. Cardiovascular disease Hypertension.Anticoagulant therapy. Skin cancer. SURGICAL HISTORY : Coronary artery stent. Cholecystectomy. ENCOUNTER: Initial ACUITY: 3 days PAIN SCALE: 4/10 LOCATION: cranial TECHNIQUE: Multiple contiguous axial images were obtained of the head. Using automated exposure control and adj ustment of the mA and/or kV according to patient size, radiation dose was kept as low as reasonably a chievable to obtain optimal diagnostic quality images. DICOM format image data is available electro nically for review and comparison. FINDINGS: Small 6 mm right occipital subdural, subacute by density. There is no significant mass effect Minimal vasoganglia calcifications Ventricle size is appropriate There is no skull fracture Orbits and nasal sinuses unremarkable. CONCLUSION: Small right 6 mm occipital subdural without skull fracture.. Benigno Benson MD FACR on August 21, 2017 at 8:53 Board Certified Radiologist. This report was verified electronically.
[2017-08-21] MEDS ORDERED: ONDANSETRON HCL 4 MG/2 ML VIAL IV PUSH ONE (09:15)
[2017-08-21] MEDS ORDERED: niMODipine 30 MG CAP PO ONE (09:15)
[2017-08-21 09:28] LABS: BASOPHIL # 0.1 TH/MM3 (0-0.2); EOSINOPHIL % 0.3 % (0.0-4.0); HEMATOCRIT 45.3 % (39.0-51.0); HEMOGLOBIN 15.5 GM/DL (13.0-17.0); LYMPH % 6.8 % (9.0-44.0); LYMPHOCYTE # 0.6 TH/MM3 (1.0-4.8); MEAN CELL VOLUME 95.3 FL (80.0-100.0); MEAN CORPUSCULAR HEMOGLOBIN 32.7 PG (27.0-34.0); MEAN CORPUSCULAR HGB CONC 34.3 % (32.0-36.0); MEAN PLATELET VOLUME 9.6 FL (7.0-11.0); MONO % 6.4 % (0.0-8.0); MONOCYTE # 0.6 TH/MM3 (0-0.9); NEUT % 85.5 % (16.0-70.0); PLATELET COUNT 132 TH/MM3 (150-450); RED BLOOD COUNT 4.76 MIL/MM3 (4.50-5.90); RED CELL DISTRIBUTION WIDTH 12.9 % (11.6-17.2); WHITE BLOOD COUNT 9.3 TH/MM3 (4.0-11.0)
[2017-08-21 09:30] LABS: PROTHROMBIN TIME - PATIENT 10.4 SEC (9.8-11.6)
[2017-08-21] MEDS ORDERED: FOSPHENYTOIN INJ 1,000 MGPE in SODIUM CHLORIDE 0.9% INJ 50 ML IV ONE (09:30)
[2017-08-21 09:35] LABS: BILIRUBIN, URINE NEG (NEG); GLUCOSE,URINE NEG (NEG); KETONE, URINE TRACE mg/dL (NEG); NITRITE,URINE NEG (NEG); PH, URINE 6.5 (5.0-8.5); URINE LEUKOCYTE ESTERASE NEG (NEG)
--- NOTE | 2017-08-21 09:37 | RADRPT ---
EXAM DATE/TIME: 08/21/2017 09:06 [facility] COMPARISON: CHEST PA & LAT, March 20, 2016, 22:20. INDICATIONS : Cough, MEDICAL HISTORY : Cerebrovascular disease. Cardiovascular disease Hypertension.Anticoagulant therapy. Skin cancer. SURGICAL HISTORY : Coronary artery stent. Cholecystectomy ENCOUNTER: Initial ACUITY: 3 days PAIN SCORE: 0/10 LOCATION: chest FINDINGS: Portable AP view of the chest demonstrates a normal-sized cardiac silhouette. No effusion, consolidat ion, or pneumothorax is visualized. The bones and soft tissues demonstrate no acute abnormality. CONCLUSION: No acute cardiopulmonary abnormality is identified. Karthikeyan Gale MD on August 21, 2017 at 9:34 Board Certified Radiologist. This report was verified electronically.
[2017-08-21 09:39] LABS: BLOOD, URINE TRACE (NEG); URINE COLOR STRAW (YELLW/STRAW); WBC, URINE 0-2 /hpf (0-5)
[2017-08-21 09:55] LABS: CHLORIDE 98 MEQ/L (98-107); SODIUM (NA) 135 MEQ/L (136-145)
--- NOTE | 2017-08-21 09:55 | PD.CONS ---
[facility] Service Neurosurgery Consult Requested By Dr Odonnell Reason for Consult Intracranial bleed Primary Care Physician Saniya Boyd MD History of Present Illness This is a 87 year old male who apparently fell 4 or 5 times. he is complaining of headaches nausea and vomiting. Apparently, he heard the phone ring turned to go answer and he turned too quickly got dizzy and stumbled down there was no loss of consciousness. No seizure activity reported. No tongue biting. No incontinence of stool or urine. He usually "catches himself with his arm" but this time he couldn't catch himself. hitting the back of his head. overnight last night developed headache and nausea with vomiting which brought him to ER. He was found to have occipital SDH. transferred to ICU for close monitoring. Denies any LOC. Denies any lightheadedness or syncope. Neurosurgical consultation was requested Review of Systems Clinical Condition, Poor Historian Constitutional: DENIES: Diaphoretic episodes, Fatigue, Fever, Weight gain, Weight loss, Chills, Dizziness, Change in appetite, Night Sweats Endocrine: DENIES: Heat/cold intolerance, Polydipsia, Polyuria, Polyphagia Eyes: DENIES: Blurred vision, Diplopia, Eye inflammation, Eye pain, Vision loss , Photosensitivity, Double Vision Respiratory: DENIES: Apneas, Cough, Snoring, Wheezing, Hemoptysis, Sputum production, Shortness of breath Cardiovascular: DENIES: Chest pain, Palpitations, Syncope, Dyspnea on Exertion , PND, Lower Extremity Edema, Orthopnea, Claudication Gastrointestinal: COMPLAINS OF: Nausea, Vomiting, DENIES: Abdominal pain, Black stools, Bloody stools, Constipation, Diarrhea, Difficulty Swallowing, Anorexia Genitourinary: DENIES: Sexual dysfunction, Urinary frequency, Urinary incontinence, Urgency, Hematuria, Dysuria, Nocturia, Penile Discharge, Testicular Pain, Testicular Swelling Musculoskeletal: DENIES: Joint pain, Muscle aches, Stiffness, Joint Swelling, Back pain, Neck pain Integumentary: DENIES: Abnormal pigmentation, Nail changes, Pruritus, Rash Hematologic/lymphatic: DENIES: Bruising, Lymphadenopathy Immunologic/allergic: DENIES: Eczema, Urticaria Neurologic: COMPLAINS OF: Abnormal gait, Headache, DENIES: Localized weakness, Paresthesias, Seizures, Speech Problems, Tremor, Poor Balance Psychiatric: DENIES: Anxiety, Confusion, Mood changes, Depression, Hallucinations, Agitation, Suicidal Ideation, Homicidal Ideation, Delusions Past Family Social History Allergies: Coded Allergies: prednisone (Unverified Allergy, Severe, RASH/HIVES, 08/21/17) cortisone (Unverified Allergy, Intermediate, rash, 08/21/17) Past Medical History TIAs dementia Alzheimer's disease CAD with PCI x 2 on plavix hypercholesterolemia HTN Arthritis Depression GERD Peter's Esophagus Urinary Incontinence BPH Past Surgical History Cholecystectomy 2004 PCI x 2 Reported Medications Plavix Caffeine 200 Mg Tab 100 Mg PO Q4HR PRN Cymbalta DR (Duloxetine HCl) 20 Mg Capdr 20 Mg PO DAILY Flomax (Tamsulosin HCl) 0.4 Mg Cap 0.4 Mg PO HS Active Ordered Medications Current Medications Fosphenytoin Sodium 1000 mgpe/ Sodium Chloride 70 ml @ 300 mls/hr ONCE ONCE IV Last administered on 08/21/17at 09:45; Start 08/21/17 at 09:30; Stop at 09:43; Status DC Nimodipine (Nimotop) 60 mg ONCE ONCE PO Last administered on 08/21/17at 09:48; Start 08/21/17 at 09:15; Stop 08/21/17 at 09:16; Status DC Ondansetron HCl (Zofran Inj) 4 mg ONCE ONCE IV PUSH Last administered on at 09:45; Start 08/21/17 at 09:15; Stop 08/21/17 at 09:16; Status DC Labetalol HCl (Trandate Inj) 10 mg ONCE ONCE IV PUSH Last administered on 08/21at 10:16; Start 08/21/17 at 10:15; Stop 08/21/17 at 10:16; Status DC Labetalol HCl (Trandate Inj) 20 mg Q15M PRN IV PUSH sbp > 160; Start 08/21/17 at 10:45 Hydralazine HCl (Apresoline Inj) 10 mg Q30M PRN IV PUSH sbp > 160 Last administered on 08/21/17at 17:19; Start 08/21/17 at 10:45 Potassium Chloride 100 ml @ 50 mls/hr Q2H PRN IV For Potassium 2.8 - 3.2 mEq/L ; Start 08/21/17 at 10:45 Potassium Chloride 100 ml @ 50 mls/hr Q2H PRN IV For Potassium 2.8 - 3.2 mEq/L ; Start 08/21/17 at 10:45 Potassium Bicarb/ Potassium Chloride (K-Lyte Cl Eff) 50 meq UNSCH PRN PO For Potassium 3.3 - 3.5 mEq/L; Start 08/21/17 at 10:45 Potassium Chloride 100 ml @ 25 mls/hr UNSCH PRN IV For Potassium 3.3 - 3.5 mEq /L; Start 08/21/17 at 10:45 Potassium Chloride 100 ml @ 50 mls/hr Q2H PRN IV For Potassium 3.3 - 3.5 mEq/L ; Start 08/21/17 at 10:45 Magnesium Sulfate 4 gm/Sodium Chloride 100 ml @ 50 mls/hr UNSCH PRN IV For Magnesium 0.9 - 1.1 mg/dL; Start 08/21/17 at 10:45 Magnesium Oxide (Mag-Ox) 800 mg UNSCH PRN PO For Magnesium 1.2 - 1.6 mg/dL; Start 08/21/17 at 10:45 Magnesium Sulfate 2 gm/Sodium Chloride 100 ml @ 50 mls/hr UNSCH PRN IV For Magnesium 1.2 - 1.6 mg/dL; Start 08/21/17 at 10:45 Potassium Phosphate (K-Phos) 2,000 mg Q4H PRN PO For Phosphorus < 2.5 mg/dL; Start 08/21/17 at 10:45 Sodium Phosphate 30 mmol/Sodium Chloride 250 ml @ 42 mls/hr UNSCH PRN IV For Phosphorus < 2.5 mg/dL; Start 08/21/17 at 10:45 Potassium Phosphate (K-Phos) 2,000 mg UNSCH PRN PO/TUBE SEE LABEL COMMENTS; Start 08/21/17 at 10:45 Potassium Phosphate 30 mmol/ Sodium Chloride 260 ml @ 42 mls/hr UNSCH PRN IV SEE LABEL COMMENTS; Start 08/21/17 at 10:45 Sodium Chloride 1,000 ml @ 84 mls/hr [id number] IV Last administered on at 10:36; Start 08/21/17 at 10:36 Famotidine (Pepcid) 20 mg Q12HR PO Last administered on 08/22/17at 08:39; Start 08/21/17 at 21:00 Albuterol/ Ipratropium (Duoneb Neb) 1 ampule Q2HR NEB PRN INH WHEEZING; Start 08/21/17 at 12:00 Miscellaneous Information 1 [id number] Last administered on 08/21/17at 10:45; Start 08/21/17 at 10:45 Chlorhexidine Gluconate (Chlorhexidine 2% Cloth) 3 pack Taper DAILY@04 TOP ; Start 08/22/17 at 04:00; Stop 08/18/18 at 03:59 Chlorhexidine Gluconate (Chlorhexidine 2% Cloth) 3 pack UNSCH PRN TOP HYGIENIC CARE; Start 08/21/17 at 10:45 Senna/Docusate Sodium (Lamar-Colace) 1 tab BID PO Last administered on at 08:39; Start 08/21/17 at 21:00 Magnesium Hydroxide (Milk Of Magnesia Liq) 30 ml Q12H PRN PO Mild constipation ; Start 08/21/17 at 10:45 Sennosides (Senokot) 17.2 mg Q12H PRN PO Moderate constipation; Start 08/21/17 at 10:45 Bisacodyl (Dulcolax Supp) 10 mg DAILY PRN RECTAL SEVERE CONSITIPATION; Start at 10:45 Lactulose (Lactulose Liq) 30 ml DAILY PRN PO SEVERE CONSITIPATION; Start at 10:45 Duloxetine HCl (Cymbalta Dr) 20 mg DAILY PO Last administered on 08/22/17at 08: 39; Start 08/22/17 at 09:00 Tamsulosin HCl (Flomax) 0.4 mg HS PO Last administered on 08/21/17at 20:05; Start 08/21/17 at 21:00 Ondansetron HCl (Zofran Inj) 4 mg STK-MED ONCE .ROUTE ; Start 08/22/17 at 00:03 ; Stop 08/22/17 at 00:04; Status DC Ondansetron HCl (Zofran Inj) 4 mg Q6H PRN IV PUSH NAUSEA Last administered on at 00:05; Start 08/22/17 at 01:15 Acetaminophen (Tylenol) 650 mg Q4H PRN PO pain 1-5 or fever; Start 08/22/17 at 02:00 Morphine Sulfate (Morphine Inj) 2 mg Q4H PRN IV PUSH Pain 6-10; Start 08/22/17 at 02:00 Family History His family history was reviewed and found to be noncontributory to his acute illness Social History denies tob. occasional etoh. denies illicit drug use Physical Exam Vital Signs Vital Signs Date Time Temp Pulse Resp B/P (MAP) Pulse Ox O2 Delivery O2 Flow Rate FiO2 08/21/17 09:05 83 18 192/107 (135) 92 Room Air 08/21/17 08:20 90 Room Air 08/21/17 08:20 90 Room Air 08/21/17 08:05 16 182/98 (126) Physical Exam He appears comfortable, in no acute distress The patient is alert, awake and oriented to time, place and person. Speech is fluent. Cranial nerve examination: pupils to be equal, round and reactive to light. Extra-ocular movements are intact. Facial motor and sensory function are normal and symmetrical. Gross hearing appears intact. Sternocleidomastoid and trapezius muscles are symmetrical. Other cranial nerves are intact. Neck is soft and supple with a good range of motion without pain. Muscle strength is normal in all muscle groups of both upper and lower extremities. Sensory examination is intact to light touch and pin prick in both the upper and lower extremities. Deep tendon reflexes are symmetrical in both upper and lower extremities. There is a bilateral plantar flexion response. Cerebellar examination is unremarkable, without deficits. Lungs are clear heart regular rhythm and rate Skin warm and dry Laboratory Laboratory Tests Test 08/21/17 09:02 08/21/17 09:17 White Blood Count 9.3 Red Blood Count 4.76 Hemoglobin 15.5 Hematocrit 45.3 Mean Corpuscular Volume 95.3 Mean Corpuscular Hemoglobin 32.7 Mean Corpuscular Hemoglobin Concent 34.3 Red Cell Distribution Width 12.9 Platelet Count 132 Mean Platelet Volume 9.6 Neutrophils (%) (Auto) 85.5 Lymphocytes (%) (Auto) 6.8 Monocytes (%) (Auto) 6.4 Eosinophils (%) (Auto) 0.3 Basophils (%) (Auto) 1.0 Neutrophils # (Auto) 8.0 Lymphocytes # (Auto) 0.6 Monocytes # (Auto) 0.6 Eosinophils # (Auto) 0.0 Basophils # (Auto) 0.1 CBC Comment DIFF FINAL Differential Comment Prothrombin Time 10.4 Prothromb Time International Ratio 1.0 Activated Partial Thromboplast Time 22.2 Sodium Level 135 Potassium Level 3.4 Chloride Level 98 B-Type Natriuretic Peptide 44 Urine Color STRAW Urine Turbidity CLEAR Urine pH 6.5 Urine Specific [place] 1.016 Urine Protein NEG Urine Glucose (UA) NEG Urine Ketones TRACE Urine Occult Blood TRACE Urine Nitrite NEG Urine Bilirubin NEG Urine Leukocyte Esterase NEG Urine WBC 0-2 Microscopic Urinalysis Comment CULT NOT INDICATED Date/Time Source Procedure Growth Status 08/21/17 08:53 Nasal Washing Influenza Types A,B Antigen (MAUREEN) - Final NEGATIVE FOR FLU A AND B ANTIGEN.... Complete Result Diagram: 08/21/1790108/21/17901 Imaging Last [address] 08/21/17817 Signed Impressions: Service Date/Time: Monday, August 21, 2017 08:41 - CONCLUSION: Small right 6 mm occipital subdural without skull fracture.. Benigno Benson MD FACR Chest X-Ray 08/21/17817 Signed Impressions: Service Date/Time: Monday, August 21, 2017 09:06 - CONCLUSION: No acute cardiopulmonary abnormality is identified. Karthikeyan Gale MD Assessment and Plan Assessment and Plan Caprini VTE Risk Assessment Caprini VTE Risk Assessment Caprini Risk Assessment Model Point Value = 1 Point Value = 2 Point Value = 3 Point Value = 5 Age 41-60 Minor surgery BMI > 25 kg/m2 Swollen legs Varicose veins or History of unexplained or recurrent spontaneous Oral contraceptives or hormone replacement Sepsis (< 1 month) Serious lung disease, including pneumonia (< 1 month) Abnormal pulmonary function Acute myocardial infarction Congestive heart failure (< 1 month) History of inflammatory bowel disease Medical patient at bed rest Age 61-74 Arthroscopic surgery Major open surgery (> 45 min) Laparoscopic surgery (> 45 min) Malignancy Confined to bed (> 72 hours) Immobilizing plaster cast Central venous access Age >= 75 History of VTE Family history of VTE Factor V Leiden Prothrombin [id number] Lupus anticoagulant Anticardiolipin antibodies Elevated serum homocysteine Heparin-induced thrombocytopenia Other congenital or acquired thrombophilia Stroke (< 1 month) Elective arthroplasty Hip, pelvis, or leg fracture Acute spinal cord injury (< 1 month) Prophylaxis Regimen Total Risk Factor Score Risk Level Prophylaxis Regimen 0-1 Low Early ambulation 2 Moderate Order ONE of the following: *Sequential Compression Device (SCD) *Heparin 5000 units SQ BID 3-4 Higher Order ONE of the following medications: *Heparin 5000 units SQ TID *Enoxaparin/Lovenox 40 mg SQ daily (WT < 150 kg, CrCl > 30 mL/min) *Enoxaparin/Lovenox 30 mg SQ daily (WT < 150 kg, CrCl > 10-29 mL/min) *Enoxaparin/Lovenox 30 mg SQ BID (WT < 150 kg, CrCl > 30 mL/min) AND/OR *Sequential Compression Device (SCD) 5 or more Highest Order ONE of the following medications: *Heparin 5000 units SQ TID (Preferred with Epidurals) *Enoxaparin/Lovenox 40 mg SQ daily (WT < 150 kg, CrCl > 30 mL/min) *Enoxaparin/Lovenox 30 mg SQ daily (WT < 150 kg, CrCl > 10-29 mL/min) *Enoxaparin/Lovenox 30 mg SQ BID (WT < 150 kg, CrCl > 30 mL/min) AND *Sequential Compression Device (SCD) Attending Statement Assessment: 87yM with multiple frequent falls presents with subacute occipital hemorrhage I reviewed his clinical and radiological studies Head CT 08/21/17817 Signed Impressions: Service Date/Time: Monday, August 21, 2017 08:41 - CONCLUSION: Small right 6 mm occipital subdural without skull fracture.. Benigno Benson MD FACR Chest X-Ray 08/21/17817 Signed Impressions: Service Date/Time: Monday, August 21, 2017 09:06 - CONCLUSION: No acute cardiopulmonary abnormality is identified. Karthikeyan Gale MD Neuro checks in a serial fashion. A follow-up CT of the head will be obtained in 24 hours. Hold further anti-platelet or anticoagulation medication he is at risk of deterioration. If the hemorrhage gets significantly worse she may need to undergo a craniotomy with evacuation of the hematoma. Acute bleeds in elderly patients have a high mortality rate Pulmonary. aggressive pulmonary toilette, nasotracheal suction, and breathing treatments with nebulizers. Daily PT and OT Nutrition. Tolerating Oral diet Renal. monitor closely urine output, BUN and creatinine Endocrine.Monitor serial Acu checks and SSI as needed in detail ID monitor for signs of infection Protonix for stress ulcer prophylaxis Demarcus hose and SCD's for DVT prophylaxis Further recommendations will be provided depending on the patient's clinical evaluation and follow up studies. Alfred Gill MD Aug 21, 2017 09:55
[2017-08-21 09:59] LABS: ALBUMIN 4.1 GM/DL (3.4-5.0); BICARBONATE 27.6 MEQ/L (21.0-32.0); GLUCOSE,RANDOM 120 MG/DL (74-106)
[2017-08-21 10:02] LABS: ALT (GPT) 21 U/L (12-78); AST (GOT) 15 U/L (15-37); CREATININE 0.79 MG/DL (0.60-1.30); GLOMERULAR FILTRATION RATE 93 ML/MIN (>89)
[2017-08-21 10:04] LABS: TOTAL BILIRUBIN ADULT 0.7 MG/DL (0.2-1.0); TOTAL PROTEIN 7.7 GM/DL (6.4-8.2)
[2017-08-21 10:05] LABS: ALKALINE PHOSPHATASE 60 U/L (45-117)
[2017-08-21 10:06] LABS: BLOOD UREA NITROGEN 15 MG/DL (7-18)
[2017-08-21 10:07] LABS: TROPONIN I LESS THAN 0.02 NG/ML (0.02-0.05)
[2017-08-21] MEDS ORDERED: LABETALOL HCL 100 MG/20 ML VIAL IV PUSH ONE (10:15)
[2017-08-21] MEDS ORDERED: SODIUM CHLOR 0.9% 1000 ML INJ 1,000 ML IV SCH (10:36)
[2017-08-21] MEDS ORDERED: LACTULOSE SYRUP 20 GM/30 ML CUP PO PRN (10:45)
[2017-08-21] MEDS ORDERED: MAGNESIUM OXIDE 400 MG TAB PO PRN (10:45)
[2017-08-21] MEDS ORDERED: hydrALAZINE HCL 20 MG/ML VIAL IV PUSH PRN (10:45)
[2017-08-21] MEDS ORDERED: LABETALOL HCL 100 MG/20 ML VIAL IV PUSH PRN (10:45)
[2017-08-21] MEDS ORDERED: MAGNESIUM SULFATE INJ 4 GM in SODIUM CHLORIDE 0.9% INJ 92 ML IV PRN (10:45)
[2017-08-21] MEDS ORDERED: MAGNESIUM SULFATE INJ 2 GM in SODIUM CHLORIDE 0.9% INJ 96 ML IV PRN (10:45)
[2017-08-21] MEDS ORDERED: POTASSIUM CHLOR 40 MEQ PREMIX 100 ML IV PRN ×2 (10:45)
[2017-08-21] MEDS ORDERED: BISACODYL 10 MG SUPP RECTAL PRN (10:45)
[2017-08-21] MEDS ORDERED: POTASSIUM CHLORIDE 25 MEQ EFFERVESCENT TAB PO PRN (10:45)
[2017-08-21] MEDS ORDERED: POTASSIUM CHLOR 20 MEQ PREMIX 100 ML IV PRN ×2 (10:45)
[2017-08-21] MEDS ORDERED: MISCELLANEOUS NURSING INFORMATION XX SCH (10:45)
[2017-08-21] MEDS ORDERED: SENNOSIDES 8.6 MG TAB PO PRN (10:45)
[2017-08-21] MEDS ORDERED: POTASSIUM PHOSPHATE MONOBASIC 500 MG TAB PO/TUBE PRN (10:45)
[2017-08-21] MEDS ORDERED: MAGNESIUM HYDROXIDE SUSP 30 ML CUP PO PRN (10:45)
[2017-08-21] MEDS ORDERED: POTASSIUM PHOSPHATE INJ 30 MMOL in SODIUM CHLOR 0.9% 250 ML INJ 250 ML IV PRN (10:45)
[2017-08-21] MEDS ORDERED: CHLORHEXIDINE GLUCONATE 2 % 1 PACK (2 CLOTHS) TOP PRN (10:45)
[2017-08-21] MEDS ORDERED: SODIUM PHOSPHATE INJ 30 MMOL in SODIUM CHLOR 0.9% 250 ML INJ 240 ML IV PRN (10:45)
[2017-08-21] MEDS ORDERED: POTASSIUM PHOSPHATE MONOBASIC 500 MG TAB PO PRN (10:45)
[2017-08-21] MEDS ORDERED: RESP: ALBUTEROL 2.5 MG/IPRATROPIUM 0.5 MG NEB (PRN) INH (12:00)
--- NOTE | 2017-08-21 15:09 | HHI.HP ---
[facility] Service Critical Care Medicine Primary Care Physician Saniya Boyd MD Admission Diagnosis RIGHT OCCIPITAL SUBUDURAL HEMATOMA Diagnosis: Chief Complaint: headache Travel History International Travel<30 Days: No Contact w/Intl Traveler <30 Da: No Traveled to Known Affected Are: No History of Present Illness 87yM with history of dementia who presents after falling yesterday and hitting head. per patient, he has fallen about 5 times recently and usually "catches himself with his arm" but this time he couldn't catch himself. endorses hitting the back of his head. overnight last night developed headache and nausea which brought him to ER. Found to have occipital SDH. transferred to ICU for close monitoring. Denies any LOC. Denies any lightheadedness or syncope. ROS otherwise negative. Review of Systems ROS Limitations: Clinical Condition, Poor Historian Constitutional: DENIES: Fever, Chills Ears, nose, mouth, throat: DENIES: Tinnitus, Hearing loss, Vertigo Respiratory: DENIES: Cough, Wheezing, Sputum production, Shortness of breath Cardiovascular: DENIES: Chest pain, Syncope, Dyspnea on Exertion, Lower Extremity Edema Gastrointestinal: COMPLAINS OF: Nausea, DENIES: Abdominal pain, Constipation, Diarrhea, Vomiting Neurologic: COMPLAINS OF: Headache, DENIES: Abnormal gait, Localized weakness, Paresthesias, Poor Balance Psychiatric: DENIES: Anxiety, Confusion, Mood changes Past Family Social History Allergies: Coded Allergies: prednisone (Unverified Allergy, Severe, RASH/HIVES, 08/21/17) cortisone (Unverified Allergy, Intermediate, rash, 08/21/17) Past Medical History TIAs dementia Alzheimer's disease CAD with PCI x 2 on plavix hypercholesterolemia HTN Arthritis Depression GERD Peter's Esophagus Urinary Incontinence BPH Past Surgical History Cholecystectomy 2004 PCI x 2 Reported Medications Plavix Caffeine 200 Mg Tab 100 Mg PO Q4HR PRN Cymbalta DR (Duloxetine HCl) 20 Mg Capdr 20 Mg PO DAILY Flomax (Tamsulosin HCl) 0.4 Mg Cap 0.4 Mg PO HS Active Ordered Medications See MAR Family History reviewed and found to be noncontributory to his acute illness Social History denies tob. occasional etoh. denies doa. Physical Exam Vital Signs Vital Signs Date Time Temp Pulse Resp B/P (MAP) Pulse Ox O2 Delivery O2 Flow Rate FiO2 08/21/17 11:26 08/21/17 10:56 84 18 139/74 (95) 95 Room Air 08/21/17 09:05 83 18 192/107 (135) 92 Room Air 08/21/17 08:20 90 Room Air 08/21/17 08:20 90 Room Air 08/21/17 08:05 16 182/98 (126) Physical Exam GENERAL: Frail elderly male, lying in bed HEENT: Normocephalic. Bruising over the back of scalp. Pupils equal, round, reactive, conjugate. Mucous membranes are moist NECK: Trachea is midline. There is no JVD. CHEST: Equal chest rise. Room air. Unlabored. CARDIOVASCULAR: Normal rate, regular rhythm. Sinus by telemetry ABDOMEN: Soft, nontender, nondistended. No guarding. MUSCULOSKELETAL: Pulses 2+. No peripheral edema. NEUROLOGICAL: RASS 0. CAM -. Follows commands. Oriented 3. No focal deficits. Musculoskeletal strength 5 out of 5 in all 4 extremities. Laboratory Laboratory Tests Test 08/21/17 09:02 08/21/17 09:17 White Blood Count 9.3 Red Blood Count 4.76 Hemoglobin 15.5 Hematocrit 45.3 Mean Corpuscular Volume 95.3 Mean Corpuscular Hemoglobin 32.7 Mean Corpuscular Hemoglobin Concent 34.3 Red Cell Distribution Width 12.9 Platelet Count 132 Mean Platelet Volume 9.6 Neutrophils (%) (Auto) 85.5 Lymphocytes (%) (Auto) 6.8 Monocytes (%) (Auto) 6.4 Eosinophils (%) (Auto) 0.3 Basophils (%) (Auto) 1.0 Neutrophils # (Auto) 8.0 Lymphocytes # (Auto) 0.6 Monocytes # (Auto) 0.6 Eosinophils # (Auto) 0.0 Basophils # (Auto) 0.1 CBC Comment DIFF FINAL Differential Comment Prothrombin Time 10.4 Prothromb Time International Ratio 1.0 Activated Partial Thromboplast Time 22.2 Blood Urea Nitrogen 15 Creatinine 0.79 Random Glucose 120 Total Protein 7.7 Albumin 4.1 Calcium Level 9.0 Alkaline Phosphatase 60 Aspartate Amino Transf (AST/SGOT) 15 Alanine Aminotransferase (ALT/SGPT) 21 Total Bilirubin 0.7 Sodium Level 135 Potassium Level 3.4 Chloride Level 98 Carbon Dioxide Level 27.6 Anion Gap 9 Estimat Glomerular Filtration Rate 93 Troponin I LESS THAN 0.02 B-Type Natriuretic Peptide 44 Lipase 73 Thyroid Stimulating Hormone 3rd Gen 1.040 Urine Color STRAW Urine Turbidity CLEAR Urine pH 6.5 Urine Specific [place] 1.016 Urine Protein NEG Urine Glucose (UA) NEG Urine Ketones TRACE Urine Occult Blood TRACE Urine Nitrite NEG Urine Bilirubin NEG Urine Leukocyte Esterase NEG Urine WBC 0-2 Microscopic Urinalysis Comment CULT NOT INDICATED Date/Time Source Procedure Growth Status 08/21/17 08:53 Nasal Washing Influenza Types A,B Antigen (MAUREEN) - Final NEGATIVE FOR FLU A AND B ANTIGEN.... Complete Result Diagram: 08/21/1790108/21/17901 Imaging Last Impressions Head CT 08/21/17817 Signed Impressions: Service Date/Time: Monday, August 21, 2017 08:41 - CONCLUSION: Small right 6 mm occipital subdural without skull fracture.. Benigno Benson MD FACR Chest X-Ray 08/21/17817 Signed Impressions: Service Date/Time: Monday, August 21, 2017 09:06 - CONCLUSION: No acute cardiopulmonary abnormality is identified. MD Jay Tena VTE Risk Assessment Caprini VTE Risk Assessment: Mod/High Risk (score >= 2) VTE Pharm Contraindication: Epidural catheter Caprini Risk Assessment Model Point Value = 1 Point Value = 2 Point Value = 3 Point Value = 5 Age 41-60 Minor surgery BMI > 25 kg/m2 Swollen legs Varicose veins or History of unexplained or recurrent spontaneous Oral contraceptives or hormone replacement Sepsis (< 1 month) Serious lung disease, including pneumonia (< 1 month) Abnormal pulmonary function Acute myocardial infarction Congestive heart failure (< 1 month) History of inflammatory bowel disease Medical patient at bed rest Age 61-74 Arthroscopic surgery Major open surgery (> 45 min) Laparoscopic surgery (> 45 min) Malignancy Confined to bed (> 72 hours) Immobilizing plaster cast Central venous access Age >= 75 History of VTE Family history of VTE Factor V Leiden Prothrombin [id number] Lupus anticoagulant Anticardiolipin antibodies Elevated serum homocysteine Heparin-induced thrombocytopenia Other congenital or acquired thrombophilia Stroke (< 1 month) Elective arthroplasty Hip, pelvis, or leg fracture Acute spinal cord injury (< 1 month) Prophylaxis Regimen Total Risk Factor Score Risk Level Prophylaxis Regimen 0-1 Low Early ambulation 2 Moderate Order ONE of the following: *Sequential Compression Device (SCD) *Heparin 5000 units SQ BID 3-4 Higher Order ONE of the following medications: *Heparin 5000 units SQ TID *Enoxaparin/Lovenox 40 mg SQ daily (WT < 150 kg, CrCl > 30 mL/min) *Enoxaparin/Lovenox 30 mg SQ daily (WT < 150 kg, CrCl > 10-29 mL/min) *Enoxaparin/Lovenox 30 mg SQ BID (WT < 150 kg, CrCl > 30 mL/min) AND/OR *Sequential Compression Device (SCD) 5 or more Highest Order ONE of the following medications: *Heparin 5000 units SQ TID (Preferred with Epidurals) *Enoxaparin/Lovenox 40 mg SQ daily (WT < 150 kg, CrCl > 30 mL/min) *Enoxaparin/Lovenox 30 mg SQ daily (WT < 150 kg, CrCl > 10-29 mL/min) *Enoxaparin/Lovenox 30 mg SQ BID (WT < 150 kg, CrCl > 30 mL/min) AND *Sequential Compression Device (SCD) Assessment and Plan Assessment and Plan Assessment: 87yM with multiple frequent falls presents with subacute occipital hemorrhage s/p what appears to be a mechanical fall. Hold further anti-platelet or anticoagulation medication. frequent neuro checks in an ICU setting. repeat head CT in AM. avoid long-acting sedation medication. Subdural Hemorrhage - hold plavix - frequent neuro checks in ICU - repeat head CT in AM - nsgy consultation - avoid long-acting sedating meds - no pharmacologic DVT prophylaxis nausa - secondary to SDH - zofran prn Dementia - currently CAM-. - good day/night re-orientation and avoidance of benzos to minimize risk of ICU delirium with concomitant dementia. BPH - continue home flomax Depression - continue home anti-depressant. nursing bedside swallow eval and advance diet SCDs pepcid hold pharmacologic DVT prophylaxis hold Plavix. Yonatan Barragan MD Aug 21, 2017 15:09
[2017-08-21] MEDS: DOCUSATE SODIUM 50 MG/SENNA 8.6 MG TAB PO SCH (20:05)
[2017-08-21] MEDS: FAMOTIDINE 20 MG TAB PO SCH (20:05)
[2017-08-21] MEDS ORDERED: TAMSULOSIN HCL 0.4 MG CAP PO SCH (21:00)
[2017-08-22] VITALS: BP 159/69; PULSE 74; RESP 19; TEMP 98.9; O2SAT 100
[2017-08-22] MEDS ORDERED: ONDANSETRON HCL 4 MG/2 ML VIAL ONE (00:03)
[2017-08-22 01:08] VITALS: PULSE 63
[2017-08-22] MEDS ORDERED: ONDANSETRON HCL 4 MG/2 ML VIAL IV PUSH PRN (01:15)
[2017-08-22] MEDS ORDERED: MORPHINE SULFATE 2 MG/ML INJ IV PUSH PRN (02:00)
[2017-08-22] MEDS ORDERED: ACETAMINOPHEN 325 MG TAB PO PRN (02:00)
[2017-08-22 04:00] VITALS: BP 146/78; PULSE 74; RESP 19; TEMP 97.8; O2SAT 100
[2017-08-22] MEDS ORDERED: CHLORHEXIDINE GLUCONATE 2 % 1 PACK (2 CLOTHS) TOP SCH (04:00)
[2017-08-22 04:23] LABS: HEMATOCRIT 45.4 % (39.0-51.0); HEMOGLOBIN 15.4 GM/DL (13.0-17.0); MEAN CELL VOLUME 95.9 FL (80.0-100.0); MEAN CORPUSCULAR HEMOGLOBIN 32.6 PG (27.0-34.0); MEAN CORPUSCULAR HGB CONC 33.9 % (32.0-36.0); MEAN PLATELET VOLUME 9.6 FL (7.0-11.0); PLATELET COUNT 109 TH/MM3 (150-450); RED BLOOD COUNT 4.74 MIL/MM3 (4.50-5.90); WHITE BLOOD COUNT 8.8 TH/MM3 (4.0-11.0)
[2017-08-22 05:08] LABS: BICARBONATE 26.9 MEQ/L (21.0-32.0); CALCIUM 8.5 MG/DL (8.5-10.1); CREATININE 0.71 MG/DL (0.60-1.30)
--- NOTE | 2017-08-22 05:54 | RADRPT ---
EXAM DATE/TIME: 08/22/2017 05:32 [place] COMPARISON: CT BRAIN W/O CONTRAST, August 21, 2017, 8:41. INDICATIONS : Subdural hematoma; cephalgia. RADIATION DOSE: 56.35 CTDIvol (mGy) MEDICAL HISTORY : Stroke. Cardiovascular disease Hypertension. SURGICAL HISTORY : None. ENCOUNTER: Initial ACUITY: 1 day PAIN SCALE: 2/10 LOCATION: cranial TECHNIQUE: Multiple contiguous axial images were obtained of the head. Using automated exposure control and adj ustment of the mA and/or kV according to patient size, radiation dose was kept as low as reasonably a chievable to obtain optimal diagnostic quality images. DICOM format image data is available electro nically for review and comparison. FINDINGS: CEREBRUM: There is a stable subtle 6 mm right occipital subdural hematoma. Mild diffuse cerebral atrophy. The v entricles are normal for degree of atrophy. No evidence of midline shift, mass lesion, new hemorrhag e or acute infarction. POSTERIOR FOSSA: The cerebellum and brainstem are intact. The 4th ventricle is midline. The cerebellopontine angle i s unremarkable. EXTRACRANIAL: The visualized portion of the orbits is intact. SKULL: The calvaria is intact. No evidence of skull fracture. CONCLUSION: 1. Stable small 6 mm right subdural hematoma. 2. No intercurrent hemorrhage or other acute abnormality. Morgan Francis MD on August 22, 2017 at 5:50 Board Certified Radiologist. This report was verified electronically.
[2017-08-22 07:00] VITALS: PULSE 76
[2017-08-22 08:08] VITALS: O2SAT 100
[2017-08-22] MEDS: DOCUSATE SODIUM 50 MG/SENNA 8.6 MG TAB PO SCH (08:39)
[2017-08-22] MEDS: FAMOTIDINE 20 MG TAB PO SCH (08:39)
[2017-08-22] MEDS ORDERED: DULoxetine HCl DR 20 MG CAP PO SCH (09:00)
--- NOTE | 2017-08-22 09:38 | HHI.NSPN ---
(Ella Hatch) Note Status Status: Progress Note (Ella Hatch) Interval History Interval History This is a 87 year old male who apparently fell 2 or 3 days ago. he is complaining of headaches nausea and vomiting. Apparently, he heard the phone ring turned to go answer and he turned too quickly got dizzy and stumbled down there was no loss of consciousness. No seizure activity reported. No tongue biting. No incontinence of stool or urine. 08/22: alert, mild headaches, denies focal weakness, no seizures. neuro checks stable overnight, f/u CT Brain completed (Ella Hatch) Labs, Micro, & Vital Signs Results Date Time Temp Pulse Resp B/P (MAP) Pulse Ox O2 Delivery O2 Flow Rate FiO2 08/22/17 08:08 100 21 08/22/17 07:00 76 08/22/17 04:00 97.8 74 19 146/78 (100) 100 08/22/17 01:08 63 08/22/17 00:00 98.9 74 19 159/69 (99) 100 08/21/17 20:38 100 21 08/21/17 20:00 98.1 76 18 146/68 (94) 100 08/21/17 18:00 76 25 139/73 (95) 100 08/21/17 17:00 66 25 175/92 (119) 97 08/21/17 16:01 100 21 08/21/17 16:00 97.7 64 20 156/75 (102) 97 08/21/17 15:00 68 19 149/81 (103) 98 08/21/17 15:00 68 08/21/17 14:00 66 15 145/74 (97) 99 08/21/17 13:00 97.7 64 18 159/79 (105) 100 08/21/17 12:00 97.7 80 33 159/79 (105) 97 08/21/17 11:26 08/21/17 10:56 84 18 139/74 (95) 95 Room Air Constitutional Vital Signs Date Time Temp Pulse Resp B/P (MAP) Pulse Ox O2 Delivery O2 Flow Rate FiO2 08/22/17 08:08 100 21 08/22/17 07:00 76 08/22/17 04:00 97.8 74 19 146/78 (100) 100 08/22/17 01:08 63 08/22/17 00:00 98.9 74 19 159/69 (99) 100 08/21/17 20:38 100 21 08/21/17 20:00 98.1 76 18 146/68 (94) 100 08/21/17 18:00 76 25 139/73 (95) 100 08/21/17 17:00 66 25 175/92 (119) 97 08/21/17 16:01 100 21 08/21/17 16:00 97.7 64 20 156/75 (102) 97 08/21/17 15:00 68 19 149/81 (103) 98 08/21/17 15:00 68 08/21/17 14:00 66 15 145/74 (97) 99 08/21/17 13:00 97.7 64 18 159/79 (105) 100 08/21/17 12:00 97.7 80 33 159/79 (105) 97 08/21/17 11:26 08/21/17 10:56 84 18 139/74 (95) 95 Room Air (Ella Hatch) Review of Systems Constitutional: DENIES: Fever Respiratory: DENIES: Shortness of breath Cardiovascular: DENIES: Chest pain Neurologic: COMPLAINS OF: Headache, DENIES: Seizures (Ella Hatch) Physical Exam Mr. Hirsch is alert, awake, in no acute distress. Speech is fluent. Follows commands without difficulties Cranial nerve examination: pupils equal, round, and reactive to light. Extra- ocular movements are intact. Facial motor are normal and symmetrical. Gross hearing is intact, bilaterally. Other cranial nerves are intact. Neck is soft and supple. Musculoskeletal: 5/5 in all muscle groups of both upper and lower extremities Sensory examination is intact to light touch in both the upper and lower extremities, symmetrically. Deep tendon reflexes are 1+. There is a bilateral plantar flexion response. Hoffmanns sign is negative. There is no clonus Cerebellar examination is intact to advovt-ax-deso test, rapid rhythmic alternating motion. There is no dysmetria, dysdiadochokinesia, truncal ataxia, or tremor. Heart: regular rate, rhythm Resp: clear, nonlabored breathing Skin: warm and dry (Ella Hatch) He appears comfortable, in no acute distress The patient is alert, awake and oriented to time, place and person. Speech is fluent. Cranial nerve examination: pupils to be equal, round and reactive to light. Extra-ocular movements are intact. Facial motor and sensory function are normal and symmetrical. Gross hearing appears intact. Sternocleidomastoid and trapezius muscles are symmetrical. Other cranial nerves are intact. Neck is soft and supple with a good range of motion without pain. Muscle strength is normal in all muscle groups of both upper and lower extremities. Sensory examination is intact to light touch and pin prick in both the upper and lower extremities. Deep tendon reflexes are symmetrical in both upper and lower extremities. There is a bilateral plantar flexion response. Cerebellar examination is unremarkable, without deficits. Lungs are clear heart regular rhythm and rate Skin warm and dry Laboratory Laboratory Tests Test 08/21/17 09:02 08/21/17 09:17 White Blood Count 9.3 Red Blood Count 4.76 Hemoglobin 15.5 Hematocrit 45.3 Mean Corpuscular Volume 95.3 Mean Corpuscular Hemoglobin 32.7 Mean Corpuscular Hemoglobin Concent 34.3 Red Cell Distribution Width 12.9 Platelet Count 132 Mean Platelet Volume 9.6 Neutrophils (%) (Auto) 85.5 Lymphocytes (%) (Auto) 6.8 Monocytes (%) (Auto) 6.4 Eosinophils (%) (Auto) 0.3 Basophils (%) (Auto) 1.0 Neutrophils # (Auto) 8.0 Lymphocytes # (Auto) 0.6 Monocytes # (Auto) 0.6 Eosinophils # (Auto) 0.0 Basophils # (Auto) 0.1 CBC Comment DIFF FINAL Differential Comment Prothrombin Time 10.4 Prothromb Time International Ratio 1.0 Activated Partial Thromboplast Time 22.2 Sodium Level 135 Potassium Level 3.4 Chloride Level 98 B-Type Natriuretic Peptide 44 Urine Color STRAW Urine Turbidity CLEAR Urine pH 6.5 Urine Specific [place] 1.016 Urine Protein NEG Urine Glucose (UA) NEG Urine Ketones TRACE Urine Occult Blood TRACE Urine Nitrite NEG Urine Bilirubin NEG Urine Leukocyte Esterase NEG Urine WBC 0-2 Microscopic Urinalysis Comment CULT NOT INDICATED Date/Time Source Procedure Growth Status 08/21/17 08:53 Nasal Washing Influenza Types A,B Antigen (MAUREEN) - Final NEGATIVE FOR FLU A AND B ANTIGEN.... Complete Result Diagram: 08/21/1790108/21/17901 (Alfred Gill MD) Medications Current Medications Current Medications Medications (Trade) Dose Ordered Sig/[place] Route PRN Reason Start Time Stop Time Status Last Admin Dose Admin Labetalol HCl (Trandate Inj) 20 mg Q15M PRN IV PUSH sbp > 160 08/21/17 10:45 Hydralazine HCl (Apresoline Inj) 10 mg Q30M PRN IV PUSH sbp > 160 08/21/17 10:45 08/21/17 17:19 Potassium Chloride 100 ml @ 50 mls/hr Q2H PRN IV For Potassium 2.8 - 3.2 mEq/L 08/21/17 10:45 Potassium Chloride 100 ml @ 50 mls/hr Q2H PRN IV For Potassium 2.8 - 3.2 mEq/L 08/21/17 10:45 Potassium Bicarb/ Potassium Chloride (K-Lyte Cl Eff) 50 meq UNSCH PRN PO For Potassium 3.3 - 3.5 mEq/L 08/21/17 10:45 Potassium Chloride 100 ml @ 25 mls/hr UNSCH PRN IV For Potassium 3.3 - 3.5 mEq/L 08/21/17 10:45 Potassium Chloride 100 ml @ 50 mls/hr Q2H PRN IV For Potassium 3.3 - 3.5 mEq/L 08/21/17 10:45 Magnesium Sulfate 4 gm/Sodium Chloride 100 ml @ 50 mls/hr UNSCH PRN IV For Magnesium 0.9 - 1.1 mg/dL 08/21/17 10:45 Magnesium Oxide (Mag-Ox) 800 mg UNSCH PRN PO For Magnesium 1.2 - 1.6 mg/dL 08/21/17 10:45 Magnesium Sulfate 2 gm/Sodium Chloride 100 ml @ 50 mls/hr UNSCH PRN IV For Magnesium 1.2 - 1.6 mg/dL 08/21/17 10:45 Potassium Phosphate (K-Phos) 2,000 mg Q4H PRN PO For Phosphorus < 2.5 mg/dL 08/21/17 10:45 Sodium Phosphate 30 mmol/Sodium Chloride 250 ml @ 42 mls/hr UNSCH PRN IV For Phosphorus < 2.5 mg/dL 08/21/17 10:45 Potassium Phosphate (K-Phos) 2,000 mg UNSCH PRN PO/TUBE SEE LABEL COMMENTS 08/21/17 10:45 Potassium Phosphate 30 mmol/ Sodium Chloride 260 ml @ 42 mls/hr UNSCH PRN IV SEE LABEL COMMENTS 08/21/17 10:45 Sodium Chloride 1,000 ml @ 84 mls/hr [id number] IV 08/21/17 10:36 08/21/17 10:36 Famotidine (Pepcid) 20 mg Q12HR PO 08/21/17 21:00 08/22/17 08:39 Albuterol/ Ipratropium (Duoneb Neb) 1 ampule Q2HR NEB PRN INH WHEEZING 08/21/17 12:00 Miscellaneous Information 1 Q361D XX 08/21/17 10:45 08/21/17 10:45 Chlorhexidine Gluconate (Chlorhexidine 2% Cloth) 3 pack Taper DAILY@04 TOP 08/22/17 04:00 08/18/18 03:59 Chlorhexidine Gluconate (Chlorhexidine 2% Cloth) 3 pack UNSCH PRN TOP HYGIENIC CARE 08/21/17 10:45 Senna/Docusate Sodium (Lamar-Colace) 1 tab BID PO 08/21/17 21:00 08/22/17 08:39 Magnesium Hydroxide (Milk Of Magnesia Liq) 30 ml Q12H PRN PO Mild constipation 08/21/17 10:45 Sennosides (Senokot) 17.2 mg Q12H PRN PO Moderate constipation 08/21/17 10:45 Bisacodyl (Dulcolax Supp) 10 mg DAILY PRN RECTAL SEVERE CONSITIPATION 08/21/17 10:45 Lactulose (Lactulose Liq) 30 ml DAILY PRN PO SEVERE CONSITIPATION 08/21/17 10:45 Duloxetine HCl (Cymbalta Dr) 20 mg DAILY PO 08/22/17 09:00 08/22/17 08:39 Tamsulosin HCl (Flomax) 0.4 mg HS PO 08/21/17 21:00 08/21/17 20:05 Ondansetron HCl (Zofran Inj) 4 mg Q6H PRN IV PUSH NAUSEA 08/22/17 01:15 08/22/17 00:05 Acetaminophen (Tylenol) 650 mg Q4H PRN PO pain 1-5 or fever 08/22/17 02:00 Morphine Sulfate (Morphine Inj) 2 mg Q4H PRN IV PUSH Pain 6-10 08/22/17 02:00 (Ella Hatch) Current Medications Current Medications Fosphenytoin Sodium 1000 mgpe/ Sodium Chloride 70 ml @ 300 mls/hr ONCE ONCE IV Last administered on 08/21/17at 09:45; Start 08/21/17 at 09:30; Stop at 09:43; Status DC Nimodipine (Nimotop) 60 mg ONCE ONCE PO Last administered on 08/21/17at 09:48; Start 08/21/17 at 09:15; Stop 08/21/17 at 09:16; Status DC Ondansetron HCl (Zofran Inj) 4 mg ONCE ONCE IV PUSH Last administered on at 09:45; Start 08/21/17 at 09:15; Stop 08/21/17 at 09:16; Status DC Labetalol HCl (Trandate Inj) 10 mg ONCE ONCE IV PUSH Last administered on 08/21at 10:16; Start 08/21/17 at 10:15; Stop 08/21/17 at 10:16; Status DC Labetalol HCl (Trandate Inj) 20 mg Q15M PRN IV PUSH sbp > 160; Start 08/21/17 at 10:45 Hydralazine HCl (Apresoline Inj) 10 mg Q30M PRN IV PUSH sbp > 160 Last administered on 08/21/17at 17:19; Start 08/21/17 at 10:45 Potassium Chloride 100 ml @ 50 mls/hr Q2H PRN IV For Potassium 2.8 - 3.2 mEq/L ; Start 08/21/17 at 10:45 Potassium Chloride 100 ml @ 50 mls/hr Q2H PRN IV For Potassium 2.8 - 3.2 mEq/L ; Start 08/21/17 at 10:45 Potassium Bicarb/ Potassium Chloride (K-Lyte Cl Eff) 50 meq UNSCH PRN PO For Potassium 3.3 - 3.5 mEq/L; Start 08/21/17 at 10:45 Potassium Chloride 100 ml @ 25 mls/hr UNSCH PRN IV For Potassium 3.3 - 3.5 mEq /L; Start 08/21/17 at 10:45 Potassium Chloride 100 ml @ 50 mls/hr Q2H PRN IV For Potassium 3.3 - 3.5 mEq/L ; Start 08/21/17 at 10:45 Magnesium Sulfate 4 gm/Sodium Chloride 100 ml @ 50 mls/hr UNSCH PRN IV For Magnesium 0.9 - 1.1 mg/dL; Start 08/21/17 at 10:45 Magnesium Oxide (Mag-Ox) 800 mg UNSCH PRN PO For Magnesium 1.2 - 1.6 mg/dL; Start 08/21/17 at 10:45 Magnesium Sulfate 2 gm/Sodium Chloride 100 ml @ 50 mls/hr UNSCH PRN IV For Magnesium 1.2 - 1.6 mg/dL; Start 08/21/17 at 10:45 Potassium Phosphate (K-Phos) 2,000 mg Q4H PRN PO For Phosphorus < 2.5 mg/dL; Start 08/21/17 at 10:45 Sodium Phosphate 30 mmol/Sodium Chloride 250 ml @ 42 mls/hr UNSCH PRN IV For Phosphorus < 2.5 mg/dL; Start 08/21/17 at 10:45 Potassium Phosphate (K-Phos) 2,000 mg UNSCH PRN PO/TUBE SEE LABEL COMMENTS; Start 08/21/17 at 10:45 Potassium Phosphate 30 mmol/ Sodium Chloride 260 ml @ 42 mls/hr UNSCH PRN IV SEE LABEL COMMENTS; Start 08/21/17 at 10:45 Sodium Chloride 1,000 ml @ 84 mls/hr [id number] IV Last administered on at 10:36; Start 08/21/17 at 10:36 Famotidine (Pepcid) 20 mg Q12HR PO Last administered on 08/22/17at 08:39; Start 08/21/17 at 21:00 Albuterol/ Ipratropium (Duoneb Neb) 1 ampule Q2HR NEB PRN INH WHEEZING; Start 08/21/17 at 12:00 Miscellaneous Information 1 Q361D XX Last administered on 08/21/17at 10:45; Start 08/21/17 at 10:45 Chlorhexidine Gluconate (Chlorhexidine 2% Cloth) 3 pack Taper DAILY@04 TOP ; Start 08/22/17 at 04:00; Stop 08/18/18 at 03:59 Chlorhexidine Gluconate (Chlorhexidine 2% Cloth) 3 pack UNSCH PRN TOP HYGIENIC CARE; Start 08/21/17 at 10:45 Senna/Docusate Sodium (Lamar-Colace) 1 tab BID PO Last administered on at 08:39; Start 08/21/17 at 21:00 Magnesium Hydroxide (Milk Of Magnesia Liq) 30 ml Q12H PRN PO Mild constipation ; Start 08/21/17 at 10:45 Sennosides (Senokot) 17.2 mg Q12H PRN PO Moderate constipation; Start 08/21/17 at 10:45 Bisacodyl (Dulcolax Supp) 10 mg DAILY PRN RECTAL SEVERE CONSITIPATION; Start at 10:45 Lactulose (Lactulose Liq) 30 ml DAILY PRN PO SEVERE CONSITIPATION; Start at 10:45 Duloxetine HCl (Cymbalta Dr) 20 mg DAILY PO Last administered on 08/22/17at 08: 39; Start 08/22/17 at 09:00 Tamsulosin HCl (Flomax) 0.4 mg HS PO Last administered on 08/21/17at 20:05; Start 08/21/17 at 21:00 Ondansetron HCl (Zofran Inj) 4 mg STK-MED ONCE .ROUTE ; Start 08/22/17 at 00:03 ; Stop 08/22/17 at 00:04; Status DC Ondansetron HCl (Zofran Inj) 4 mg Q6H PRN IV PUSH NAUSEA Last administered on at 00:05; Start 08/22/17 at 01:15 Acetaminophen (Tylenol) 650 mg Q4H PRN PO pain 1-5 or fever; Start 08/22/17 at 02:00 Morphine Sulfate (Morphine Inj) 2 mg Q4H PRN IV PUSH Pain 6-10; Start 08/22/17 at 02:00 (Alfred Gill MD) Medical Decision Making MDM Remarks 87 y/o male mild TBI, small right occipital subdural hematoma, stable f/u CT Brain 08/22/17 (Ella Hatch) MDM Remarks Last [address] 08/22/17 0600 Signed Impressions: Service Date/Time: Tuesday, August 22, 2017 05:32 - CONCLUSION: 1. Stable small 6 mm right subdural hematoma. 2. No intercurrent hemorrhage or other acute abnormality. Morgan Francis MD Head CT 08/21/17817 Signed Impressions: Service Date/Time: Monday, August 21, 2017 08:41 - CONCLUSION: Small right 6 mm occipital subdural without skull fracture.. Benigno Benson MD FACR Chest X-Ray 08/21/17817 Signed Impressions: Service Date/Time: Monday, August 21, 2017 09:06 - CONCLUSION: No acute cardiopulmonary abnormality is identified. Karthikeyan Gale MD (Alfred Gill MD) Plan Plan Remarks cont current care nonsurgical management nonchemical dvt prophylaxis in view of acute ICH Protonix for stress ulcer prophylaxis PT, mobilize OOB ok to dc from NRS standpoint when medically cleared (Ella Hatch) Plan Remarks Caprini VTE Risk Assessment Caprini VTE Risk Assessment Caprini Risk Assessment Model Point Value = 1 Point Value = 2 Point Value = 3 Point Value = 5 Age 41-60 Minor surgery BMI > 25 kg/m2 Swollen legs Varicose veins or History of unexplained or recurrent spontaneous Oral contraceptives or hormone replacement Sepsis (< 1 month) Serious lung disease, including pneumonia (< 1 month) Abnormal pulmonary function Acute myocardial infarction Congestive heart failure (< 1 month) History of inflammatory bowel disease Medical patient at bed rest Age 61-74 Arthroscopic surgery Major open surgery (> 45 min) Laparoscopic surgery (> 45 min) Malignancy Confined to bed (> 72 hours) Immobilizing plaster cast Central venous access Age >= 75 History of VTE Family history of VTE Factor V Leiden Prothrombin [id number] Lupus anticoagulant Anticardiolipin antibodies Elevated serum homocysteine Heparin-induced thrombocytopenia Other congenital or acquired thrombophilia Stroke (< 1 month) Elective arthroplasty Hip, pelvis, or leg fracture Acute spinal cord injury (< 1 month) Prophylaxis Regimen Total Risk Factor Score Risk Level Prophylaxis Regimen 0-1 Low Early ambulation 2 Moderate Order ONE of the following: *Sequential Compression Device (SCD) *Heparin 5000 units SQ BID 3-4 Higher Order ONE of the following medications: *Heparin 5000 units SQ TID *Enoxaparin/Lovenox 40 mg SQ daily (WT < 150 kg, CrCl > 30 mL/min) *Enoxaparin/Lovenox 30 mg SQ daily (WT < 150 kg, CrCl > 10-29 mL/min) *Enoxaparin/Lovenox 30 mg SQ BID (WT < 150 kg, CrCl > 30 mL/min) AND/OR *Sequential Compression Device (SCD) 5 or more Highest Order ONE of the following medications: *Heparin 5000 units SQ TID (Preferred with Epidurals) *Enoxaparin/Lovenox 40 mg SQ daily (WT < 150 kg, CrCl > 30 mL/min) *Enoxaparin/Lovenox 30 mg SQ daily (WT < 150 kg, CrCl > 10-29 mL/min) *Enoxaparin/Lovenox 30 mg SQ BID (WT < 150 kg, CrCl > 30 mL/min) AND *Sequential Compression Device (SCD) (Alfred Gill MD) Attending Statement Inpatient [facility] 87yM with multiple frequent falls presents with subacute occipital hemorrhage Neuro checks in a serial fashion. I reviewed his follow-up CT of the head, which was stable Acute bleeds in elderly patients have a high mortality rate Pulmonary. aggressive pulmonary toilette, nasotracheal suction, and breathing treatments with nebulizers. Daily PT and OT Nutrition. Tolerating Oral diet Renal. monitor closely urine output, BUN and creatinine Endocrine.Monitor serial Acu checks and SSI as needed in detail ID monitor for signs of infection Protonix for stress ulcer prophylaxis Demarcus hose and SCD's for DVT prophylaxis The exam, history, and the medical decision-making described in the above note were completed with the assistance of the mid-level provider. I reviewed and agree with the findings presented. I attest that I had a [id number] encounter with the patient on the same day, and personally performed and documented my assessment and findings in the medical record. (Alfred Gill MD) Ella Hatch Aug 22, 2017 09:38 Alfred Gill MD Aug 22, 2017 09:55
[2017-08-22] MEDS ORDERED: LEVE500 PO (10:00)
--- NOTE | 2017-08-22 10:03 | HHI.DS ---
Discharge Summary Admission Date Aug 21, 2017 at 10:13 Discharge Date: Aug 22, 2017 Admitting Diagnosis RIGHT OCCIPITAL SUBUDURAL HEMATOMA Brief History 87yM with history of dementia who presents after falling yesterday and hitting head. per patient, he has fallen about 5 times recently and usually "catches himself with his arm" but this time he couldn't catch himself. endorses hitting the back of his head. overnight last night developed headache and nausea which brought him to ER. Found to have occipital SDH. transferred to ICU for close monitoring. Denies any LOC. Denies any lightheadedness or syncope. ROS otherwise negative. CBC/BMP: 08/22/17 0408 08/22/17 0408 Significant Findings Laboratory Tests Test 08/21/17 09:02 08/21/17 09:17 08/22/17 04:08 Platelet Count 132 TH/MM3 (150-450) 109 TH/MM3 (150-450) Neutrophils (%) (Auto) 85.5 % (16.0-70.0) Lymphocytes (%) (Auto) 6.8 % (9.0-44.0) Neutrophils # (Auto) 8.0 TH/MM3 (1.8-7.7) Lymphocytes # (Auto) 0.6 TH/MM3 (1.0-4.8) Activated Partial Thromboplast Time 22.2 SEC (24.3-30.1) Random Glucose 120 MG/DL (74-106) Sodium Level 135 MEQ/L (136-145) Potassium Level 3.4 MEQ/L (3.5-5.1) Troponin I LESS THAN 0.02 NG/ML Urine Ketones TRACE mg/dL (NEG) Urine Occult Blood TRACE (NEG) Hospital Course the patient remained stable x 24h and had a stable head CT. he was counseled not to take plavix x 14 days and to follow up with his technical service engineer and PCP within 1 week. He was cleared from a neurosurgery standpoint. I conveyed my concern to the patient and his family over the fact that he has had frequent falls over the last few weeks and may need additional assistance at home, but the patient and family both feel he is safe at home and want to take him home today. Pt Condition on Discharge: Stable Discharge Disposition: Discharge Home Discharge Instructions DIET: Follow Instructions for: As Tolerated, No Restrictions Activities you can perform: Regular-No Restrictions Yonatan Barragan MD Aug 22, 2017 10:03
== END 2017-08-22 12:44 | disposition home or self-care (01) | DRG 87 ==
LOC: PHED 07:57 → PHEDA 10:13 → N03A 11:42
PROVIDERS: ADMIT Family Medicine; ATTEND Family Medicine
DX: S06.5X0A Traumatic subdural hemorrhage without loss of consciousness, initial encounter (principal); G30.9 Alzheimer's disease, unspecified; I10 Essential (primary) hypertension; F02.80 Dementia in other diseases classified elsewhere, unspecified severity, without behavioral disturbance, psychotic disturbance, mood disturbance, and anxiety; I25.10 Atherosclerotic heart disease of native coronary artery without angina pectoris; E78.00 Pure hypercholesterolemia, unspecified; M19.90 Unspecified osteoarthritis, unspecified site; N40.0 Benign prostatic hyperplasia without lower urinary tract symptoms; K22.70 Barrett's esophagus without dysplasia; K21.9 Gastro-esophageal reflux disease without esophagitis; F32.9 Major depressive disorder, single episode, unspecified; R29.6 Repeated falls; W19.XXXA Unspecified fall, initial encounter; H91.90 Unspecified hearing loss, unspecified ear; Z91.81 History of falling; Z95.5 Presence of coronary angioplasty implant and graft; Z86.73 Personal history of transient ischemic attack (TIA), and cerebral infarction without residual deficits
CPT/HCPCS: 70450; 71045; 80048; 80053; 81001; 83690; 83880; 84443; 84484; 85025; 85027; 85610; 85730; 87804; 94150; 94640; 94667; 94668; 96365; 96375; J0360; J2405; J7030; Q2009